=== PATIENT | female | born 1940 | race Caucasian/White ===

== ENCOUNTER 2016-12-27 16:28 | Observation (INO) | payer MEDICARE ==
[2016-12-27] MEDS ORDERED: ALBUTEROL NEBULIZED 2.5 MG/3 ML INHALATION PRN (19:20)
[2016-12-27] MEDS ORDERED: HEPARIN SODIUM,PORCINE 5,000 UNIT/ML 1 ML VIAL IV STA (19:27)
[2016-12-27] MEDS ORDERED: HEPARIN SODIUM,PORCINE/D5W PMX 25,000 UNIT in DEXTROSE/WATER 1 500ML.BAG IV SCH (19:30)
[2016-12-27] MEDS ORDERED: PRAVASTATIN SODIUM 80 MG TAB PO SCH (21:00)
[2016-12-28] MEDS: NITROGLYCERIN OINT 1 INCH/GM PACKET TOPICAL SCH ×2 (00:52→06:35)
[2016-12-28 07:21] LABS: Basophils % (A) 1 %; CH 31.4; CHCM 33.7; Eosinophils # (A) 0.1 k/uL (0-0.7); Eosinophils % (A) 1 %; HCT 42.1 % (34.0-46.0); HGB 14.1 gm/dL (11.4-16.0); Luc # (Auto) 0.15; Luc % (Auto) 2; Lymphocytes # (A) 3.3 k/uL (1.0-4.8); Lymphocytes % (A) 51 %; MCH 31.4 pg (25.0-35.0); MCHC 33.6 g/dL (31.0-37.0); MCV 93.7 fL (80.0-100.0); Mean Platelet Volume 7.6; Monocytes # (A) 0.4 k/uL (0-1.0); Monocytes % (A) 7 %; Neutrophils # (A) 2.4 k/uL (1.3-7.7); Neutrophils % (A) 38 %; RDW 13.4 % (11.5-15.5); WBC 6.4 k/uL (3.8-10.6); WBC (Perox) 6.35
[2016-12-28] MEDS ORDERED: PANTOPRAZOLE 40 MG TABLET PO SCH (07:30)
[2016-12-28 08:11] LABS: ALT 25 U/L (9-52); AST 20 U/L (14-36); Alkaline Phosphatase 100 U/L (38-126); Anion Gap 8 mmol/L; Blood Urea Nitrogen 16 mg/dL (7-17); Calcium 8.9 mg/dL (8.4-10.2); Carbon Dioxide 24 mmol/L (22-30); Chloride 109 mmol/L (98-107); Glucose 121 mg/dL (74-99); Non-African American GFR(MDRD) >60 (>60 ml/min/1.73 sqM); Potassium 4.2 mmol/L (3.5-5.1); Sodium 141 mmol/L (137-145); Total Bilirubin 0.5 mg/dL (0.2-1.3); Total Protein 5.9 g/dL (6.3-8.2)
[2016-12-28 08:47] LABS: Manual Review Performed; RBC Morphology Normal
[2016-12-28] MEDS ORDERED: NEBIVOLOL 5 MG TAB PO SCH (09:00)
[2016-12-28] MEDS ORDERED: ASPIRIN 325 MG TAB PO SCH (09:00)
[2016-12-28] MEDS ORDERED: DULoxetine HCL 60 MG CAPSULE.DR PO SCH (09:00)
[2016-12-28] MEDS ORDERED: METOPROLOL TARTRATE 12.5 MG TAB PO SCH (09:30)
[2016-12-28] MEDS ORDERED: MECLIZINE 12.5 MG TAB PO PRN (09:37)
--- NOTE | 2016-12-28 10:59 | ECHOF ---
Referral Reason:chest pain, shortness of breath MEASUREMENTS -------- HEIGHT: 157.5 cm WEIGHT: 100.7 kg BP: 122/56 IVSd: 1.2 cm (0.6 - 1.1) LVIDd: 3.5 cm (3.9 - 5.3) LVPWd: 1.2 cm (0.6 - 1.1) IVSs: 1.6 cm LVIDs: 2.3 cm LVPWs: 1.9 cm LA Diam: 3.9 cm (2.7 - 3.8) LAESV Index (A-L): 21.86 ml/m Ao Diam: 3.0 cm (2.0 - 3.7) AV Cusp: 2.0 cm (1.5 - 2.6) LA Diam: 3.7 cm (2.7 - 3.8) MV EXCURSION: 13.536 mm (> 18.000) MV EF SLOPE: 45 mm/s (70 - 150) EPSS: 0.7 cm MV E Brown: 0.92 m/s MV DecT: 311 ms MV A Brown: 0.85 m/s MV E/A Ratio: 1.09 RAP: 5.00 mmHg RVSP: 24.03 mmHg FINDINGS -------- Sinus rhythm. This was a technically adequate study. The left ventricular size is normal. There is mild concentric left ventricular hypertrophy. Overall left ventricular systolic function is normal with, an EF between 55 - 60 %. The right ventricle is normal in size and function. Normal LA size by volume 22+/-6 ml/m2. The right atrium is normal in size. Aortic valve is trileaflet and is mildly thickened. Mild mitral annular calcification present. Mild mitral regurgitation is present. Mild tricuspid regurgitation present. There is no evidence of pulmonary hypertension. The right ventricular systolic pressure, as measured by Doppler, is 24.03mmHg. There is no pulmonic regurgitation present. The aortic root, ascending aorta and aortic arch are normal. There is no pericardial effusion. CONCLUSIONS -------- 1. Sinus rhythm. 2. There is no pulmonic regurgitation present. 3. The aortic root, ascending aorta and aortic arch are normal. 4. There is no pericardial effusion. 5. This was a technically adequate study. 6. There is mild concentric left ventricular hypertrophy. 7. Overall left ventricular systolic function is normal with, an EF between 55 - 60 %. 8. Normal LA size by volume 22+/-6 ml/m2. 9. Aortic valve is trileaflet and is mildly thickened. 10. Mild mitral annular calcification present. 11. Mild mitral regurgitation is present. 12. Mild tricuspid regurgitation present. REGULATORY SERVICES CONSULTANT: Lupe Murphy RDCS
--- NOTE | 2016-12-28 11:45 | CONS ---
This is a 76-year-old lady with a known history of hypertensive cardiovascular disease, hyperlipidemia, calcified coronary arteries who underwent stenting of circumflex performed on October of 2014 with a drug eluting stent. She saw Dr. Gutierrez in the last few months and in August of this year had a Lexiscan stress test which revealed a very small apical lateral wall defect with partial normalization, which was not strongly suggestive of ischemia. She has been advised medical therapy, has been doing well. She comes in with complaints of what seems to be a nondescript chest tightness and pressure, with which she presented to [facility] and then was a direct admit from there. She had elevated D-dimer and she had a CT angio done, which was negative for pulmonary embolism. She is resting comfortably without symptoms at this time. Her main complaint is right ear pain and dizziness, which seems to be more or less related to an inner ear type issue. Her troponins are normal. She has no chest pain at this time. She appears to be hemodynamically stable. EKG does not reveal any significant abnormalities. PAST MEDICAL HISTORY: 1. Hypertension. 2. Hyperlipidemia. 3. History of stenting of mid circumflex performed in October of 2014. Medications at home include aspirin, Bystolic 5 mg daily and Cymbalta. She also takes pravastatin 80 mg daily and albuterol inhaler. ALLERGIES: TETRACYCLINE, SULFA, CLINDAMYCIN. On examination, blood pressure is 130/80, pulse rate is 80 per minute and regular. HEENT: Unremarkable. Fundus was not examined by me. Neck is supple. No JVD. I do not hear a carotid bruit. There is no thyromegaly. Heart exam reveals S1 and S2 are normal without rub, murmur or gallop. Lungs are clear. Abdomen is soft, nontender. Lower extremities reveal normal pulses, no edema. Central nervous system is normal. EKG is unremarkable. Laboratory data revealed troponins are normal. D-dimer was high, but CT angiography was negative for pulmonary embolism or aortic pathology. IMPRESSION: 1. Atypical chest pain. 2. History of PCI of circumflex in October of 2014 and a stress test that did not reveal any strong evidence of ischemia in August of this year. 3. Hypertension. 4. Hypercholesterolemia. RECOMMENDATIONS: I am recommending that we discontinue IV, put a Hep Lock, increase the activity. Seek an ENT consult for her dizziness, start her on meclizine 12.5 mg t.i.d. She can be discharged later on today and see Dr. Gutierrez as an outpatient. I am not recommending any intervention coronary disease lambert and her symptoms are quite atypical and her CT angiography was performed within the last 12 to 14 hours, which was negative. She received about 120 mL of contrast. Thank you very much for the consult. ANTWON
[2016-12-28 12:27] VITALS: BP 142/67; PULSE 81; RESP 14; TEMP 98.2
--- NOTE | 2016-12-28 12:55 | P.HPIM ---
History of Present Illness H&P Date: 12/28/16 Chief Complaint: Chest pain HISTORY AND PHYSICAL AND DISCHARGE SUMMARY: This is a 76-year-old female patient of Dr. Erwin with past medical history of degenerative joint disease, skin cancer, gastroesophageal reflux disease, hypertension, depression and generalized anxiety disorder, hyperlipidemia, glaucoma, SVT, hypothyroidism, colon polyp and history of coronary artery disease status post PCI in the LAD 2 years ago. The patient recently underwent a stress test in the cardiology office which was negative. Patient presented to [facility] with complaints of chest tightness and dizziness and was slightly transferred to [facility] as a direct admission to the observation unit. She had an elevated d-dimer and CTA of the chest was negative for pulmonary embolism she is complaining of right ear pain and dizziness. Echocardiogram reveals EF of 55-60%, mild mitral regurgitation, mild tricuspid regurgitation. Patient has been seen by mold maker, Dr. Clive George, with recommendations for consult with Dr. Gonzales which will be done as an outpatient. Patient does have continued dizziness for which she received meclizine this morning. Patient denies any chest pain or shortness of breath. Patient will be discharged home today in stable condition. Review of Systems All systems: negative Constitutional: Denies chills, Denies fever Eyes: denies blurred vision, denies pain Ears, nose, mouth and throat: Reports vertigo, Denies headache, Denies sore throat Cardiovascular: Reports chest pain, Denies shortness of breath Respiratory: Denies cough Gastrointestinal: Denies abdominal pain, Denies diarrhea, Denies nausea, Denies vomiting Genitourinary: Denies dysuria, Denies hematuria Musculoskeletal: Denies myalgias Integumentary: Denies pruritus, Denies rash Neurological: Denies numbness, Denies weakness Psychiatric: Denies anxiety, Denies depression Endocrine: Denies fatigue, Denies weight change Past Medical History Past Medical History: Coronary Artery Disease (CAD), Cancer, Chest Pain / Angina , GERD/Reflux, Hyperlipidemia, Hypertension, Osteoarthritis (OA), Thyroid Disorder Additional Past Medical History / Comment(s): SKIN CANCER, "AFTER 2ND KNEE SX KIDNEYS SHUT DOWN-SINCE RESOLVED", DJD, SVT, PALPITATIONS, glaucoma History of Any Multi-Drug Resistant Organisms: None Reported Past Surgical History: Appendectomy, Bariatric Surgery, Cardiac Ablation, Cholecystectomy, Heart Catheterization With Stent, Hysterectomy, Joint Replacement Additional Past Surgical History / Comment(s): Right total knee arthroplasty in 2009 with revision in 2013, right heel cord repair, right knee meniscus repair, right knee adhesion repair, RIGHT EYE CATARACT, RIGHT AND LEFT ROTATOR CUFF REPAIR, NIKKO CARPAL TUNNEL, RIGHT KNEE ARTHROSCOPIC, COLONOSCOPY X3 POLYS REMOVED WERE BENIGN, lap band, spinal fusion, cardiac ablation, right ankle fracture repair Past Anesthesia/Blood Transfusion Reactions: Previous Problems w/ Anesthesia Additional Past Anesthesia/Blood Transfusion Reaction / Comment(s): "AFTER 2ND KNEE SX-KIDNEYS SHUT DOWN" Date of Last Stent Placement:: 2014 Smoking Status: Former smoker Additional Past Alcohol Use History / Comment(s): Patient was a smoker of 2 packs per day for 25 years ago quit 30 years ago. No marijuana, street drug use or alcohol use. Patient is and lives at home with her . Her is wheelchair bound. - Past Family History Mother Family Medical History: Cancer Additional Family Medical History / Comment(s): Mother at age 45 from COLON CANCER Father Family Medical History: Congestive Heart Failure (CHF), Myocardial Infarction ( [place]) Additional Family Medical History / Comment(s): Father at age 45 from myocardial infarction. Brother(s) Additional Family Medical History / Comment(s): Patient had 1 brother that at age 64 from a myocardial infarction. Sister(s) Additional Family Medical History / Comment(s): Patient has 3 sisters and one has history of Guillain-barre syndrome. Son(s) Additional Family Medical History / Comment(s): Patient has one son with history of neurofibrmatosis type I and type II. Medications and Allergies Home Medications Medication Instructions Recorded Confirmed Type Aspirin 81 mg PO DAILY 10/23/14 12/27/16 History DULoxetine HCL [Cymbalta] 120 mg PO DAILY 10/23/14 12/27/16 History Albuterol Inhaler [Ventolin Hfa 2 puff INHALATION RT-Q4H PRN 12/27/16 12/27/16 History Inhaler] Pravastatin Sodium [Pravachol] 80 mg PO HS 12/27/16 12/27/16 History Allergies Allergy/AdvReac Type Severity Reaction Status Date / Time clindamycin Allergy Swelling, Verified 12/27/16 21:37 ITCHING,NAUSEA AND VOMITING Sulfa (Sulfonamide Allergy Swelling Verified 12/27/16 21:37 Antibiotics) Tetracyclines Allergy Swelling Verified 12/27/16 21:37 Physical Exam Vitals: Vital Signs Temp Pulse Resp BP Pulse Ox 12/28/16 08:00 97.6 F 66 18 139/65 92 L 12/28/16 04:00 97.8 F 70 18 122/56 94 L 12/28/16 00:00 98.1 F 68 18 127/66 90 L 12/27/16 20:00 97.9 F 78 18 134/77 90 L 12/27/16 18:26 98.1 F 69 19 156/79 92 L Intake and Output 12/27/16 12/28/16 12/28/16 22:59 06:59 14:59 Intake Total 520 496.603 Balance 520 496.603 Intake: IV 60 320 0.9 NS @ KVO 60 160 Heparin Sodium,Porcine/ 160 D5w Pmx 25,000 unit In Dextrose/Water 1 500ml. bag @ 9.89 UNITS/KG/HR 19 .99 mls/hr IV .Q24H RONALD Rx#:[id number] Intake, IV Titration 60 126.603 Amount Heparin Sodium,Porcine/ 60 126.603 D5w Pmx 25,000 unit In Dextrose/Water 1 500ml. bag @ 9.89 UNITS/KG/HR 19 .99 mls/hr IV .Q24H RONALD Rx#:[id number] Oral 400 50 Other: Voiding Method Toilet Toilet Toilet # Voids 2 2 Weight 101.1 kg Gen: This is a morbidly obese 76-year-old female sitting up in bed and appears to be in no acute distress. HEENT: Head is atraumatic, normocephalic. Pupils equal, round. Sclerae is anicteric. NECK: Supple. No JVD. No lymphadenopathy. No thyromegaly. LUNGS: Clear to auscultation. No wheezes or rhonchi. No intercostal retractions. HEART: Regular rate and rhythm. No murmur. ABDOMEN: Soft. Bowel sounds are present. No masses. No tenderness. EXTREMITIES: No pedal edema. No calf tenderness. NEUROLOGICAL: Patient is awake, alert and oriented x3. Cranial nerves 2 through 12 are grossly intact. Results CBC & Chem 7: 12/28/16 07:06 12/28/16 07:06 Labs: Abnormal Lab Results - Last 24 Hours (Table) 12/28/16 12/28/16 Range/Units 01:46 07:06 APTT 45.7 H (22.0-30.0) sec Chloride 109 H (98-107) mmol/L Glucose 121 H (74-99) mg/dL Total Protein 5.9 L (6.3-8.2) g/dL Albumin 3.4 L (3.5-5.0) g/dL Thrombosis Risk Factor Assmnt - DVT/VTE Prophylaxis DVT/VTE Prophylaxis: Mechanical Prophylaxis ordered - Choose All That Apply Any of the Below Risk Factors Present?: Yes Each Factor Represents 1 point: Obesity (BMI >25) Other Risk Factors: Yes Each Risk Factor Represents 2 Points: Age 61-74 years, Malignancy Other congenital or acquired thrombophilia - If yes, enter type in comment: No Thrombosis Risk Factor Assessment Total Risk Factor Score: 5 Thrombosis Risk Factor Assessment Level: High Risk Assessment and Plan Plan: 1. Chest pain of unclear etiology with recently normal stress test and history of coronary artery disease with previous PCI of the LAD 2 years ago. Patient has been evaluated by cardiology and cleared for discharge. Diastolic was discontinued and patient started on metoprolol tartrate 25 mg twice daily. 2. Dizziness. Patient will follow-up with Dr Gonzales as an outpatient. Continue meclizine at home. 3. Hypertension. Continue metoprolol. 4. Hyperlipidemia. Continue pravastatin. 5. Glaucoma. 6. History of Hypothyroidism. 7. Gastroesophageal reflux disease. 8. Depression recurrent with generalized anxiety disorder. Continue Cymbalta. Patient was placed on the observation unit. Patient to be discharged home today in stable condition. Impression and plan of care have been directed as dictated by the signing physician. Leana Navarrete nurse practitioner acting as scribe for signing physician.
== END 2016-12-28 12:20 | disposition home or self-care (01) ==
LOC: 3OBS 18:00
PROVIDERS: ADMIT Internal Medicine; ATTEND Internal Medicine
DX: R07.89 Other chest pain (principal); I25.10 Atherosclerotic heart disease of native coronary artery without angina pectoris; R42 Dizziness and giddiness; E78.5 Hyperlipidemia, unspecified; H40.9 Unspecified glaucoma; E03.9 Hypothyroidism, unspecified; K21.9 Gastro-esophageal reflux disease without esophagitis; F41.1 Generalized anxiety disorder; F32.9 Major depressive disorder, single episode, unspecified; I11.9 Hypertensive heart disease without heart failure; Z95.5 Presence of coronary angioplasty implant and graft; R79.89 Other specified abnormal findings of blood chemistry; H92.01 Otalgia, right ear; Z79.82 Long term (current) use of aspirin; Z79.899 Other long term (current) drug therapy; Z88.1 Allergy status to other antibiotic agents; Z88.2 Allergy status to sulfonamides; E78.00 Pure hypercholesterolemia, unspecified; Z87.891 Personal history of nicotine dependence; E66.01 Morbid (severe) obesity due to excess calories; Z68.41 Body mass index [BMI] 40.0-44.9, adult; Z85.828 Personal history of other malignant neoplasm of skin; Z82.49 Family history of ischemic heart disease and other diseases of the circulatory system
CPT/HCPCS: 93005; 96365; 96366 ×2; 96376; 93306; 80053; 84443; 84484 ×2; 85025; 85730; G0378 ×2; G0379; J1644 ×2

== ENCOUNTER → 2019-07-07 | Outpatient (CLI) | payer MEDICARE ==
[2019-07-07 16:04] LABS: Basophils % (A) 0 %; Eosinophils # (A) 0.1 k/uL (0-0.7); Eosinophils % (A) 1 %; HCT 44.5 % (34.0-46.0); HGB 14.1 gm/dL (11.4-16.0); Lymphocytes % (A) 33 %; MCH 29.4 pg (25.0-35.0); MCHC 31.6 g/dL (31.0-37.0); MCV 92.9 fL (80.0-100.0); Mean Platelet Volume 7.4; Monocytes # (A) 0.4 k/uL (0-1.0); Monocytes % (A) 5 %; Neutrophils # (A) 5.5 k/uL (1.3-7.7); Neutrophils % (A) 60 %; Platelet Count 235 k/uL (150-450); RBC 4.79 m/uL (3.80-5.40); RDW 12.2 % (11.5-15.5); WBC 9.1 k/uL (3.8-10.6)
[2019-07-07 16:10] LABS: Calcium 9.6 mg/dL (8.4-10.2); Potassium 4.8 mmol/L (3.5-5.1); Total Bilirubin 0.8 mg/dL (0.2-1.3); Total Protein 6.8 g/dL (6.3-8.2)
== END | disposition home or self-care (01) ==
LOC: LABPAT 14:36
PROVIDERS: ATTEND Surgery
DX: Z01.818 Encounter for other preprocedural examination (principal); Z01.812 Encounter for preprocedural laboratory examination
CPT/HCPCS: 36415; 80053; 85025; 93005

== ENCOUNTER → 2019-07-07 | Outpatient (CLI) | payer MEDICARE ==
[2019-07-07 14:19] VITALS: BP 148/82; PULSE 71; RESP 16; TEMP 98.2; BMI 43.1
--- NOTE | 2019-07-07 16:11 | P.HPBAR ---
Bariatric H&P - History & Physicial H&P Date: 07/07/19 History & Physicial: Visit/CC: pt wants band out Patient initial contact: Initial weight: 112.037 kg Initial weight in pounds: 247.00 Height: 5 ft Initial BMI: 48.2 Last weight: Current weight: 100.244 kg Current weight in pounds: 221.00 Current BMI: 43.1 [place] body weight (based on NIH guidelines): 45.359 kg Excess body weight loss: 17.6% The patient is a 79 year-old F who presents for Bariatric Assessment. Patient's had issues with chronic GERD and dysphagia. She is requesting a band to be removed. Past Medical History Past Medical History: Coronary Artery Disease (CAD), Cancer, Chest Pain / Angina, GERD/Reflux, Hyperlipidemia, Hypertension, Osteoarthritis (OA), Thyroid Disorder Additional Past Medical History / Comment(s): SKIN CANCER, "AFTER 2ND KNEE SX KIDNEYS SHUT DOWN-SINCE RESOLVED", DJD, SVT, PALPITATIONS, glaucoma History of Any Multi-Drug Resistant Organisms: None Reported Past Surgical History: Adenoidectomy, Appendectomy, Bariatric Surgery, Cardiac Ablation, Cholecystectomy, Heart Catheterization With Stent, Hysterectomy, Joint Replacement, Orthopedic Surgery, Tonsillectomy Additional Past Surgical History / Comment(s): Right total knee arthroplasty in 2008 with revision in 2012, right heel cord repair, right knee meniscus repair, right knee adhesion repair, RIGHT EYE CATARACT, RIGHT AND LEFT ROTATOR CUFF REPAIR, NIKKO CARPAL TUNNEL, RIGHT KNEE ARTHROSCOPIC, COLONOSCOPY X3 POLYS REMOVED WERE BENIGN, lap band, spinal fusion, cardiac ablation, right ankle fracture repair Past Anesthesia/Blood Transfusion Reactions: Previous Problems w/ Anesthesia Additional Past Anesthesia/Blood Transfusion Reaction / Comm: "AFTER 2ND KNEE SX-KIDNEYS SHUT DOWN" Date of Last Stent Placement:: 2014 Past Psychological History: Depression Additional Psychological History / Comment(s): PT IS INDEPENDANT. LIVES WITH HER ,SON AND 3 GRAND CHILDREN. HAS 1 PET CAT. PT HAS 6 PORCH STEPS OR A RAMP SHE CAN USE. NO OUTSIDE SERVICES RECEIVED. NO MEDICAL EQUIPMENT. Smoking Status: Former smoker Past Alcohol Use History: Rare Additional Past Alcohol Use History / Comment(s): Patient was a smoker of 2 packs per day for 25 years ago quit 30 years ago. No marijuana, street drug use or alcohol use. Patient is and lives at home with her . Her is wheelchair bound. Past Drug Use History: None Reported - Past Family History Brother(s) Additional Family Medical History / Comment(s): Patient had 1 brother that at age 64 from a myocardial infarction. Sister(s) Additional Family Medical History / Comment(s): Patient has 3 sisters and one has history of Guillain-barre syndrome. Son(s) Additional Family Medical History / Comment(s): Patient has one son with history of neurofibrmatosis type I and type II. Mother Family Medical History: Cancer Additional Family Medical History / Comment(s): Mother at age 45 from COLON CANCER Father Family Medical History: Congestive Heart Failure (CHF), Myocardial Infarction ([place]) Additional Family Medical History / Comment(s): Father at age 45 from myocardial infarction. Surgical - Exam Vital Signs Temp Pulse Resp BP 98.2 F 71 16 148/82 07/07/19 14:16 07/07/19 14:16 07/07/19 14:16 07/07/19 14:16 - General well developed, well nourished, no distress - Eyes PERRL - ENT normal pinna - Neck no masses - Respiratory normal expansion - Cardiovascular Rhythm: regular - Abdomen Abdomen: soft, non tender Bariatric Assessment & Plan Plan: The patient's had chronic dysphagia and GERD. Patient will have her LAP-BAND system removed. Patient was warned of potential weight gain. Bariatric Checklist Checklist: Plan: Checklist: EGD: 1. Hiatal hernia: 2. H. Pylori: HgbA1c: Vitamin D: Smoking: Former smoker Primary care physician referral: Yaima Psychiatry clearance: Cardiology clearance: Sleep study: Diet journal: VTE risk score: VTE risk level: Rehab needs at discharge:
== END | disposition home or self-care (01) ==
LOC: BARWHC3 13:52
PROVIDERS: ATTEND Surgery
DX: Z46.51 Encounter for fitting and adjustment of gastric lap band (principal); K21.9 Gastro-esophageal reflux disease without esophagitis; R13.10 Dysphagia, unspecified; Z87.891 Personal history of nicotine dependence; Z98.84 Bariatric surgery status; Z90.49 Acquired absence of other specified parts of digestive tract; Z90.710 Acquired absence of both cervix and uterus; Z98.890 Other specified postprocedural states
CPT/HCPCS: 99211

== ENCOUNTER 2019-07-30 06:50 | Day surgery (SDC) | payer MEDICARE ==
[2019-07-29 12:39] VITALS: BMI 39.6
[~2019-07-30 06:50] MED LIST: DEXAMETHASONE SOD PHOSPHATE 10 MG/ML 1 ML VIAL IV ONE; LACTATED RINGERS 1,000 ML IV SCH; LIDOCAINE 1% (10MG/ML) FOR IV START INTRADERMA PRN; MIDAZOLAM 2 MG/2 ML VIAL IV PRN; SCOPOLAMINE 1.5MG/72HR PATCH TRANSDERM ONE
[2019-07-30] MEDS: ONDANSETRON 4 MG/2 ML VIAL IVP ONE ×2 (07:28→09:41)
[2019-07-30] MEDS ORDERED: NEOSTIGMINE 1 MG/ML 10 ML VIAL ONE (08:10)
[2019-07-30] MEDS ORDERED: MIDAZOLAM 2 MG/2 ML VIAL ONE (08:10)
[2019-07-30] MEDS ORDERED: PROPOFOL 10 MG/ML 20 ML VIAL IV ONE (08:10)
[2019-07-30] MEDS ORDERED: SUCCINYLCHOLINE CHLORIDE 100 MG/5 ML SYR IV ONE (08:10)
[2019-07-30] MEDS ORDERED: fentaNYL (PF) 50 MCG/ML 2 ML AMP ONE (08:10)
[2019-07-30] MEDS ORDERED: ROCURONIUM BROMIDE 10 MG/ML 5 ML VIAL IV ONE (08:10)
[2019-07-30] MEDS ORDERED: LIDOCAINE 1% INJ 10MG/ML (20 ML MDV) ONE (08:10)
[2019-07-30] MEDS ORDERED: GLYCOPYRROLATE 0.2 MG/ML 2 ML VIAL ONE (08:10)
[2019-07-30] MEDS ORDERED: HEPARIN SODIUM,PORCINE 5,000 UNIT/ML 1 ML VIAL SQ ONE (08:12)
--- NOTE | 2019-07-30 08:30 | P.GSHP ---
History of Present Illness H&P Date: 07/30/19 Chief Complaint: Dysphagia This a 79-year-old female who's had chronic history dysphagia. Patient rents today for removal of LAP-BAND system Past Medical History Past Medical History: Coronary Artery Disease (CAD), Cancer, Chest Pain / Angina, GERD/Reflux, Hyperlipidemia, Hypertension, Osteoarthritis (OA), Thyroid Disorder Additional Past Medical History / Comment(s): SKIN CANCER, "AFTER 2ND KNEE SX KIDNEYS SHUT DOWN-SINCE RESOLVED", DJD, SVT, PALPITATIONS, glaucoma, recent "viral" infection per pt-just finished antibiotics, feels much better History of Any Multi-Drug Resistant Organisms: None Reported Past Surgical History: Appendectomy, Bariatric Surgery, Cardiac Ablation, Cholecystectomy, Heart Catheterization With Stent, Hysterectomy, Joint Repl acement Additional Past Surgical History / Comment(s): Right total knee arthroplasty in 2008 with revision in 2012, right heel cord repair, right knee meniscus repair, right knee adhesion repair, RIGHT EYE CATARACT, NIKKO ROTATOR CUFF REPAIR, NIKKO CARPAL TUNNEL, RIGHT KNEE ARTHROSCOPIC, COLONOSCOPY X3, lap band, spinal fusion, right ankle fracture repair Past Anesthesia/Blood Transfusion Reactions: Previous Problems w/ Anesthesia Additional Past Anesthesia/Blood Transfusion Reaction / Comment(s): "AFTER 2ND KNEE SX-KIDNEYS SHUT DOWN" Date of Last Stent Placement:: 2014 Smoking Status: Former smoker - Past Family History Brother(s) Additional Family Medical History / Comment(s): Patient had 1 brother that at age 64 from a myocardial infarction. Sister(s) Additional Family Medical History / Comment(s): Patient has 3 sisters and one has history of Guillain-barre syndrome. Son(s) Additional Family Medical History / Comment(s): Patient has one son with history of neurofibrmatosis type I and type II. Mother Family Medical History: Cancer Additional Family Medical History / Comment(s): Mother at age 45 from COLON CANCER Father Family Medical History: Congestive Heart Failure (CHF), Myocardial Infarction ([place]) Additional Family Medical History / Comment(s): Father at age 45 from myocardial infarction. Medications and Allergies Home Medications Medication Instructions Recorded Confirmed Type Atorvastatin [Lipitor] 40 mg PO HS 07/07/19 07/29/19 History Evolocumab [Repatha Syringe] 140 mg SQ Q14D 07/07/19 07/29/19 History HYDROcodone/APAP 10-325MG [[place] 1 tab PO Q6H PRN 07/07/19 07/29/19 History 10-325] Nebivolol HCl [Bystolic] 5 mg PO DAILY 07/07/19 07/29/19 History Omeprazole 40 mg PO DAILY 07/07/19 07/29/19 History Allergies Allergy/AdvReac Type Severity Reaction Status Date / Time clindamycin Allergy Swelling, Verified 07/30/19 07:06 ITCHING,NAUSEA AND VOMITING ezetimibe [From Zetia] Allergy Rash/Hives Verified 07/30/19 07:06 rosuvastatin [From Crestor] Allergy Rash/Hives Verified 07/30/19 07:06 Sulfa (Sulfonamide Allergy Swelling Verified 07/30/19 07:06 Antibiotics) Tetracyclines Allergy Swelling Verified 07/30/19 07:06 Surgical - Exam Vital Signs Temp Pulse Resp BP Pulse Ox 98.6 F 71 16 169/79 95 07/30/19 07:17 07/30/19 07:17 07/30/19 07:17 07/30/19 07:17 07/30/19 07:17 - General well developed, well nourished, no distress - Eyes PERRL - ENT normal pinna - Neck no masses - Respiratory normal expansion - Cardiovascular Rhythm: regular - Abdomen Abdomen: soft, non tender Assessment and Plan Assessment: Chronic dysphagia. We'll perform removal of LAP-BAND system.
[2019-07-30] MEDS ORDERED: BUPIVACAINE (PF) 0.25% 30 ML VIAL SQ ONE (08:44)
[2019-07-30 09:17] VITALS: TEMP 97.4
[2019-07-30] MEDS: HYDROmorphone 0.5 MG/0.5 ML SYRINGE IVP PRN ×3 (09:27→09:51)
--- NOTE | 2019-07-30 09:36 | P.OP ---
Date of Procedure: 07/30/19 Preoperative Diagnosis: Dysphagia Postoperative Diagnosis: Dysphagia Procedure(s) Performed: Laparoscopic removal of LAP-BAND system Anesthesia: HILLARY Surgeon: Celso Do Estimated Blood Loss (ml): 5 Pathology: none sent Condition: stable Disposition: PACU Description of Procedure: The patient's placed on the operative table in supine position. She received general anesthesia. Her abdomen was prepped and draped usual sterile fashion. The patient's placed in dorsolithotomy. Using 1% local Xylocaine the skin incision sites were anesthetized. Using 11 blade the skin was incised and using which cautery the LAP-BAND port was dissected free from some taste tissues. The port was then cut and withdrawn from patient. Next using a 5 mm operative trocar the pleural cavity is entered. Upon entering peritoneal cavity the abdomen was insufflated after adequate insufflation the laparoscope placed back the pleural cavity. Next a 5 mm trochars placed in the right epigastric left lateral, right lateral a 8 mm trochars placed in the left. Local area and a 15 mm trocar is placed at the LAP-BAND port site using which cautery the adhesions Shantel device were lysed. Then the buckle was exposed. The buckle was then cut and the withdrawn from around stomach. There was no injury to the stomach seen. The LAP-BAND device then brought up through the 15 mm trocar site. The trochars withdrawn. The skin was closed interrupted 3-0 Monocryl suture. Dermabond was applied. Patient top she will was sent to recovery in stable condition.
[2019-07-30] MEDS ORDERED: KETOROLAC 30 MG/ML 1 ML VIAL IVP ONE (09:41)
[2019-07-30 10:22] VITALS: BP 108/68; PULSE 67; RESP 16
== END 2019-07-30 10:46 | disposition home or self-care (01) ==
LOC: OR 06:50
PROVIDERS: ATTEND Surgery
DX: K95.09 Other complications of gastric band procedure (principal); R13.10 Dysphagia, unspecified; K21.9 Gastro-esophageal reflux disease without esophagitis; I25.119 Atherosclerotic heart disease of native coronary artery with unspecified angina pectoris; I10 Essential (primary) hypertension; Z87.891 Personal history of nicotine dependence; E78.5 Hyperlipidemia, unspecified; M19.90 Unspecified osteoarthritis, unspecified site; E07.9 Disorder of thyroid, unspecified; Z85.828 Personal history of other malignant neoplasm of skin; H40.9 Unspecified glaucoma; Z90.49 Acquired absence of other specified parts of digestive tract; Z90.710 Acquired absence of both cervix and uterus; Z98.1 Arthrodesis status; Z95.5 Presence of coronary angioplasty implant and graft; Z98.41 Cataract extraction status, right eye; Z82.0 Family history of epilepsy and other diseases of the nervous system; Z82.49 Family history of ischemic heart disease and other diseases of the circulatory system; Z80.0 Family history of malignant neoplasm of digestive organs; Z79.891 Long term (current) use of opiate analgesic; Z79.899 Other long term (current) drug therapy; Z88.1 Allergy status to other antibiotic agents; Z88.2 Allergy status to sulfonamides; Z88.8 Allergy status to other drugs, medicaments and biological substances
CPT/HCPCS: 43774; J2250; J1644; J1100; J2710; J0690; J2405; J2001; J3010; J1885; J0330; J2704; J1170

== ENCOUNTER → 2019-08-18 | Outpatient (CLI) | payer MEDICARE ==
[2019-08-18 16:24] VITALS: BP 138/80; PULSE 77; TEMP 98.2; BMI 43.7
--- NOTE | 2019-08-19 12:43 | P.HPBAR ---
Bariatric H&P - History & Physicial H&P Date: 08/18/19 History & Physicial: Visit/CC: lap band removal follow up Patient initial contact: Initial weight: 112.037 kg Initial weight in pounds: 247.00 Height: 5 ft Initial BMI: 48.2 Last weight: Current weight: 101.605 kg Current weight in pounds: 224.00 Current BMI: 43.7 [place] body weight (based on NIH guidelines): 45.359 kg Excess body weight loss: 15.6% The patient is a 79 year-old F who presents for Bariatric Assessment. Patient presents today for follow-up. She is morbidly obese. Her BMI is 44. She had her LAP-BAND removed several weeks ago. She's had some minimal GERD. Past Medical History Past Medical History: Coronary Artery Disease (CAD), Cancer, Chest Pain / Angina, GERD/Reflux, Hyperlipidemia, Hypertension, Osteoarthritis (OA), Thyroid Disorder Additional Past Medical History / Comment(s): SKIN CANCER, "AFTER 2ND KNEE SX KIDNEYS SHUT DOWN-SINCE RESOLVED", DJD, SVT, PALPITATIONS, glaucoma, recent "viral" infection per pt-just finished antibiotics, feels much better History of Any Multi-Drug Resistant Organisms: None Reported Past Surgical History: Appendectomy, Bariatric Surgery, Cardiac Ablation, Cholecystectomy, Heart Catheterization With Stent, Hysterectomy, Joint Replacement Additional Past Surgical History / Comment(s): Right total knee arthroplasty in 2008 with revision in 2012, right heel cord repair, right knee meniscus repair, right knee adhesion repair, RIGHT EYE CATARACT, NIKKO ROTATOR CUFF REPAIR, NIKKO CARPAL TUNNEL, RIGHT KNEE ARTHROSCOPIC, COLONOSCOPY X3, lap band, spinal fusion, right ankle fracture repair lap band [id number] Past Anesthesia/Blood Transfusion Reactions: Previous Problems w/ Anesthesia Additional Past Anesthesia/Blood Transfusion Reaction / Comm: "AFTER 2ND KNEE SX-KIDNEYS SHUT DOWN" Date of Last Stent Placement:: 2014 Past Psychological History: Depression Additional Psychological History / Comment(s): PT IS INDEPENDANT. LIVES WITH HER ,SON AND 3 GRAND CHILDREN. HAS 1 PET CAT. PT HAS 6 PORCH STEPS OR A RAMP SHE CAN USE. NO OUTSIDE SERVICES RECEIVED. NO MEDICAL EQUIPMENT. Smoking Status: Former smoker Past Alcohol Use History: Rare Additional Past Alcohol Use History / Comment(s): Patient was a smoker of 2 packs per day for 25 years ago quit 30 years ago. No marijuana, street drug use or alcohol use. Patient is and lives at home with her . Her is wheelchair bound. Past Drug Use History: None Reported - Past Family History Brother(s) Additional Family Medical History / Comment(s): Patient had 1 brother that at age 64 from a myocardial infarction. Sister(s) Additional Family Medical History / Comment(s): Patient has 3 sisters and one has history of Guillain-barre syndrome. Son(s) Additional Family Medical History / Comment(s): Patient has one son with history of neurofibrmatosis type I and type II. Mother Family Medical History: Cancer Additional Family Medical History / Comment(s): Mother at age 45 from COLON CANCER Father Family Medical History: Congestive Heart Failure (CHF), Myocardial Infarction ([place]) Additional Family Medical History / Comment(s): Father at age 45 from myocardial infarction. Surgical - Exam Vital Signs Temp Pulse BP 98.2 F 77 138/80 08/18/19 16:22 08/18/19 16:22 08/18/19 16:22 - General well developed, well nourished, no distress - Eyes PERRL - ENT normal pinna - Neck no masses - Respiratory normal expansion - Cardiovascular Rhythm: regular - Abdomen Abdomen: soft, non tender Bariatric Assessment & Plan Plan: RBC, BMI 44 Patient is minimal will be observed. She'll follow-up in 3 months. Bariatric Checklist Checklist: Plan: Checklist: EGD: 1. Hiatal hernia: 2. H. Pylori: HgbA1c: Vitamin D: Smoking: Former smoker Primary care physician referral: Yaima Psychiatry clearance: Cardiology clearance: Sleep study: Diet journal: VTE risk score: VTE risk level: Rehab needs at discharge:
== END | disposition home or self-care (01) ==
LOC: BARWHC3 13:26
PROVIDERS: ATTEND Surgery
DX: Z46.51 Encounter for fitting and adjustment of gastric lap band (principal); Z87.891 Personal history of nicotine dependence
CPT/HCPCS: 99211

== ENCOUNTER → 2020-01-16 | Outpatient (CLI) | payer MEDICARE ==
--- NOTE | 2020-01-20 07:47 | ECHOF ---
Referral Reason:I26.99 Other pulmonary embolism without acute cor MEASUREMENTS -------- HEIGHT: 157.5 cm WEIGHT: 102.1 kg BP: RVIDd: 3.8 cm (< 3.3) IVSd: 1.2 cm (0.6 - 1.1) LVIDd: 4.1 cm (3.9 - 5.3) LVPWd: 1.2 cm (0.6 - 1.1) IVSs: 1.6 cm LVIDs: 2.6 cm LVPWs: 1.8 cm LAESV Index (A-L): 28.41 ml/m Ao Diam: 2.5 cm (2.0 - 3.7) AV Cusp: 1.7 cm (1.5 - 2.6) MV EXCURSION: 13.261 mm (> 18.000) MV EF SLOPE: 84 mm/s (70 - 150) EPSS: 0.7 cm MV E Brown: 1.37 m/s MV DecT: 202 ms MV A Brown: 0.77 m/s MV E/A Ratio: 1.78 RAP: 5.00 mmHg RVSP: 39.47 mmHg FINDINGS -------- Sinus rhythm. This was a technically adequate study. The left ventricular size is normal. There is mild concentric left ventricular hypertrophy. Overa ll left ventricular systolic function is normal with, an EF between 55 - 60 %. The diastolic fillin g pattern is normal for the age of the patient 14.43. The right ventricle is mild to moderately enlarged. LA is midly dilated 29-33ml/m2. The right atrium is mildly enlarged. Interatrial and interventricular septum intact. There is mild aortic valve sclerosis. There is no evidence of aortic regurgitation. There is no e vidence of aortic stenosis. [id number]-[id number] mitral regurgitation is present. Mild tricuspid regurgitation present. There is mild pulmonary hypertension. The right ventricular systolic pressure, as measured by Doppler, is 39.47mmHg. There is no pulmonic regurgitation present. The aortic root size is normal. IVC Not well visulized. There is no pericardial effusion. CONCLUSIONS -------- 1. The left ventricular size is normal. 2. There is mild concentric left ventricular hypertrophy. 3. The diastolic filling pattern is normal for the age of the patient 14.43 4. The right ventricle is mild to moderately enlarged. 5. LA is midly dilated 29-33ml/m2. 6. The right atrium is mildly enlarged. 7. There is mild aortic valve sclerosis. 8. Loia-ja-tsyustpk mitral regurgitation is present. 9. Mild tricuspid regurgitation present. 10. There is mild pulmonary hypertension. 11. The right ventricular systolic pressure, as measured by Doppler, is 39.47mmHg. IT NETWORK ADMINISTRATOR: Jeannine Lynne RDCS
== END | disposition home or self-care (01) ==
LOC: RADECHMAIN 12:06
PROVIDERS: ATTEND Internal Medicine
DX: I08.1 Rheumatic disorders of both mitral and tricuspid valves (principal); I27.20 Pulmonary hypertension, unspecified
CPT/HCPCS: 93306

== ENCOUNTER → 2020-03-23 | Outpatient (CLI) | payer MEDICARE ==
--- NOTE | 2020-03-24 07:14 | CT ---
EXAMINATION TYPE: CT chest abdomen w con DATE OF EXAM: 03/23/2020 COMPARISON: 08/26/2014 HISTORY: LUQ pain CT DLP: 1625.4 mGycm CONTRAST: CT scan of the chest, abdomen is performed with Oral Contrast and with IV Contrast, patient injected with 80cc mL of Isovue 300. CT Chest: LUNGS: The lungs are clear and free of infiltrate or atelectasis. No pulmonary nodule or mass is det ected. No pleural effusion or CT evidence of interstitial lung disease. MEDIASTINUM: Thoracic aorta is of normal caliber. The heart is enlarged. No evidence for mediastin al mass or adenopathy. HILAR STRUCTURES: No evidence for mass. No hilar adenopathy is appreciated. OTHER: No significant abnormality. CONTRAST CT ABDOMEN FINDINGS: LIVER/GB: There is evidence of cholelithiasis. Underlying hepatic steatosis is mild in degree. No spa ce occupying hepatic lesion. Biliary tree is of normal caliber. PANCREAS: No inflammation. No distinct mass. SPLEEN: No splenic enlargement. No lesion seen. ADRENALS: No nodule. No thickening. KIDNEYS/BLADDER: No hydronephrosis. No nephrolithiasis. Simple cyst upper pole left kidney is uncha nged. There BOWEL: Normal appendix. Normal bowel caliber. No inflammation. LYMPH NODES: No greater than 1cm abdominal or pelvic lymph nodes are appreciated. AORTA: No significant abnormality. OSSEOUS STRUCTURES: Degenerative changes noted. OTHER: No significant additional abnormality is seen. IMPRESSION: 1. Mild hepatic steatosis. 2. Simple cyst upper pole left kidney. 3. Cardiomegaly with coronary artery calcifications.
== END | disposition home or self-care (01) ==
LOC: RADCTMAIN 15:16
PROVIDERS: ATTEND Internal Medicine
DX: K76.0 Fatty (change of) liver, not elsewhere classified (principal); N28.1 Cyst of kidney, acquired; I51.7 Cardiomegaly; I25.10 Atherosclerotic heart disease of native coronary artery without angina pectoris
CPT/HCPCS: 82565; 84520; 71260; 74160; 36415; Q9967

== ENCOUNTER → 2020-04-12 | Outpatient (CLI) | payer MEDICARE ==
[2020-04-12 14:42] VITALS: BP 188/95; PULSE 81; TEMP 98.4; BMI 43.5
--- NOTE | 2020-04-12 15:00 | P.HPBAR ---
Bariatric H&P - History & Physicial H&P Date: 04/12/20 History & Physicial: Visit/CC: follow up Patient initial contact: Initial weight: 112.037 kg Initial weight in pounds: 247.00 Height: 5 ft Initial BMI: 48.2 Last weight: Current weight: 101.151 kg Current weight in pounds: 223.00 Current BMI: 43.5 [place] body weight (based on NIH guidelines): 45.359 kg Excess body weight loss: 16.3% The patient is a 80 year-old F who presents for Bariatric Assessment. Patient presents today for with complaints of epigastric pain. She describes a chronic epigastric pain. Past Medical History Past Medical History: Coronary Artery Disease (CAD), Cancer, Chest Pain / Angina, GERD/Reflux, Hyperlipidemia, Hypertension, Osteoarthritis (OA), Pulmonary Embolus (PE), Thyroid Disorder Additional Past Medical History / Comment(s): SKIN CANCER, "AFTER 2ND KNEE SX KIDNEYS SHUT DOWN-SINCE RESOLVED", DJD, SVT, PALPITATIONS, glaucoma, recent "viral" infection per pt-just finished antibiotics, feels much better History of Any Multi-Drug Resistant Organisms: None Reported Past Surgical History: Appendectomy, Bariatric Surgery, Cardiac Ablation, Cholecystectomy, Heart Catheterization With Stent, Hysterectomy, Joint Replacement Additional Past Surgical History / Comment(s): Right total knee arthroplasty in 2008 with revision in 2012, right heel cord repair, right knee meniscus repair, right knee adhesion repair, RIGHT EYE CATARACT, NIKKO ROTATOR CUFF REPAIR, NIKKO CARPAL TUNNEL, RIGHT KNEE ARTHROSCOPIC, COLONOSCOPY X3, lap band, spinal fusion, right ankle fracture repair lap band [id number] Past Anesthesia/Blood Transfusion Reactions: Previous Problems w/ Anesthesia Additional Past Anesthesia/Blood Transfusion Reaction / Comm: "AFTER 2ND KNEE SX-KIDNEYS SHUT DOWN" Date of Last Stent Placement:: 2014 Past Psychological History: Depression Additional Psychological History / Comment(s): PT IS INDEPENDANT. LIVES WITH HER ,SON AND 3 GRAND CHILDREN. HAS 1 PET CAT. PT HAS 6 PORCH STEPS OR A RAMP SHE CAN USE. NO OUTSIDE SERVICES RECEIVED. NO MEDICAL EQUIPMENT. Smoking Status: Former smoker Past Alcohol Use History: Rare Additional Past Alcohol Use History / Comment(s): Patient was a smoker of 2 packs per day for 25 years ago quit 30 years ago. No marijuana, street drug use or alcohol use. Patient is and lives at home with her . Her is wheelchair bound. Past Drug Use History: None Reported - Past Family History Brother(s) Additional Family Medical History / Comment(s): Patient had 1 brother that at age 64 from a myocardial infarction. Sister(s) Additional Family Medical History / Comment(s): Patient has 3 sisters and one has history of Guillain-barre syndrome. Son(s) Additional Family Medical History / Comment(s): Patient has one son with history of neurofibrmatosis type I and type II. Mother Family Medical History: Cancer Additional Family Medical History / Comment(s): Mother at age 45 from COLON CANCER Father Family Medical History: Congestive Heart Failure (CHF), Myocardial Infarction ([place]) Additional Family Medical History / Comment(s): Father at age 45 from myocardial infarction. Surgical - Exam Vital Signs Temp Pulse BP 98.4 F 81 188/95 04/12/20 14:34 04/12/20 14:34 04/12/20 14:34 - General well developed, well nourished, no distress - Eyes PERRL - ENT normal pinna - Neck no masses - Respiratory normal expansion - Cardiovascular Rhythm: regular - Abdomen Abdomen: soft, non tender Bariatric Assessment & Plan Plan: (Pain. Patient be scheduled for EGD. Bariatric Checklist Checklist: Plan: Checklist: EGD: 1. Hiatal hernia: 2. H. Pylori: HgbA1c: Vitamin D: Smoking: Former smoker Primary care physician referral: Yaima Psychiatry clearance: Cardiology clearance: Sleep study: Diet journal: VTE risk score: VTE risk level: Rehab needs at discharge:
== END | disposition home or self-care (01) ==
LOC: BARWHC3 14:22
PROVIDERS: ATTEND Surgery
DX: R10.13 Epigastric pain (principal); Z90.49 Acquired absence of other specified parts of digestive tract; Z98.84 Bariatric surgery status; Z98.890 Other specified postprocedural states; Z90.710 Acquired absence of both cervix and uterus
CPT/HCPCS: 99211

== ENCOUNTER 2020-04-16 09:29 | Observation (INO) | payer MEDICARE ==
[2020-04-16] MEDS ORDERED: HYDROmorphone 0.5 MG/0.5 ML SYRINGE IVP STA (09:55)
--- NOTE | 2020-04-16 09:56 | ED ---
General Adult HPI - General Chief complaint: Abdominal Pain Stated complaint: Sent by PCP - Abd Pain Time Seen by Provider: 04/16/20 09:41 Source: patient, RN notes reviewed, old records reviewed Mode of arrival: wheelchair Limitations: no limitations - History of Present Illness Initial comments: 80-year-old female presenting for evaluation of abdominal pain. Patient had previous lap band and is status post lap band removal in July of this year. She's had some left upper abdominal pain for the past one month. She had a computed tomography scan 3 weeks ago. She was seen by her primary care physician today and sent to the emergency department for evaluation of left upper abdominal pain. No vomiting. Normal bowel movements. No fever. - Related Data Home Medications Medication Instructions Recorded Confirmed Atorvastatin [Lipitor] 40 mg PO HS 07/07/19 04/12/20 Evolocumab [Repatha Syringe] 140 mg SQ Q14D 07/07/19 04/12/20 HYDROcodone/APAP 10-325MG [[place] 1 tab PO Q6H PRN 07/07/19 04/12/20 10-325] Nebivolol HCl [Bystolic] 5 mg PO DAILY 07/07/19 04/12/20 Omeprazole 40 mg PO DAILY 07/07/19 04/12/20 Previous Rx's Medication Instructions Recorded Docusate [Colace] 100 mg PO BID #20 capsule 07/30/19 HYDROcodone/APAP 5-325MG [[place] 1 tab PO Q6HR PRN #10 tab 07/30/19 5-325] Allergies Allergy/AdvReac Type Severity Reaction Status Date / Time clindamycin Allergy Swelling, Verified 04/16/20 09:36 ITCHING,NAUSEA AND VOMITING ezetimibe [From Zetia] Allergy Rash/Hives Verified 04/16/20 09:36 rosuvastatin [From Crestor] Allergy Rash/Hives Verified 04/16/20 09:36 Sulfa (Sulfonamide Allergy Swelling Verified 04/16/20 09:36 Antibiotics) Tetracyclines Allergy Swelling Verified 04/16/20 09:36 Review of Systems ROS Statement: Those systems with pertinent positive or pertinent negative responses have been documented in the HPI. ROS Other: All systems not noted in ROS Statement are negative. Past Medical History Past Medical History: Coronary Artery Disease (CAD), Cancer, Chest Pain / Angina, GERD/Reflux, Hyperlipidemia, Hypertension, Osteoarthritis (OA), Pulmonary Embolus (PE), Thyroid Disorder Additional Past Medical History / Comment(s): SKIN CANCER, "AFTER 2ND KNEE SX KIDNEYS SHUT DOWN-SINCE RESOLVED", DJD, SVT, PALPITATIONS, glaucoma, recent "viral" infection per pt-just finished antibiotics, feels much better, bilateral pulmonary embolism History of Any Multi-Drug Resistant Organisms: None Reported Past Surgical History: Appendectomy, Bariatric Surgery, Cardiac Ablation, Chol ecystectomy, Heart Catheterization With Stent, Hysterectomy, Joint Replacement Additional Past Surgical History / Comment(s): Right total knee arthroplasty in 2009 with revision in 2013, right heel cord repair, right knee meniscus repair, right knee adhesion repair, RIGHT EYE CATARACT, NIKKO ROTATOR CUFF REPAIR, NIKKO CARPAL TUNNEL, RIGHT KNEE ARTHROSCOPIC, COLONOSCOPY X3, lap band, spinal fusion, right ankle fracture repair lap band [id number] Past Anesthesia/Blood Transfusion Reactions: Previous Problems w/ Anesthesia Additional Past Anesthesia/Blood Transfusion Reaction / Comment(s): "AFTER 2ND KNEE SX-KIDNEYS SHUT DOWN" Date of Last Stent Placement:: 2014 Past Psychological History: Depression Smoking Status: Former smoker Past Alcohol Use History: Rare Past Drug Use History: None Reported - Past Family History Brother(s) Additional Family Medical History / Comment(s): Patient had 1 brother that at age 64 from a myocardial infarction. Sister(s) Additional Family Medical History / Comment(s): Patient has 3 sisters and one has history of Guillain-barre syndrome. Son(s) Additional Family Medical History / Comment(s): Patient has one son with history of neurofibrmatosis type I and type II. Mother Family Medical History: Cancer Additional Family Medical History / Comment(s): Mother at age 45 from COLON CANCER Father Family Medical History: Congestive Heart Failure (CHF), Myocardial Infarction ([place]) Additional Family Medical History / Comment(s): Father at age 45 from myocardial infarction. General Exam Limitations: no limitations General appearance: alert, in no apparent distress Head exam: Present: atraumatic, normocephalic Eye exam: Present: normal appearance, PERRL ENT exam: Present: normal exam Neck exam: Present: normal inspection. Absent: tenderness, meningismus Respiratory exam: Present: normal lung sounds bilaterally. Absent: respiratory distress, wheezes Cardiovascular Exam: Present: regular rate, normal rhythm GI/Abdominal exam: Present: soft, distended, tenderness (Tender, distended left upper abdomen). Absent: guarding, rebound Extremities exam: Present: normal inspection, normal capillary refill. Absent: pedal edema Neurological exam: Present: alert, oriented X3, CN II-XII intact. Absent: motor sensory deficit Psychiatric exam: Present: normal affect, normal mood Skin exam: Present: warm, dry, intact. Absent: cyanosis, diaphoretic Course Vital Signs 04/16/20 09:30 Temperature 97.0 F L Pulse Rate 76 Respiratory 18 Rate Blood Pressure 164/82 O2 Sat by Pulse 96 Oximetry Medical Decision Making - Medical Decision Making 80-year-old female with worsening left upper abdominal pain. Patient does have a fullness and tenderness in the left upper quadrant. She had a CT 3 weeks ago however in the interval time pain has worsened. She has a normal CBC, she has a mild lactic acidosis. X-rays negative for obstruction or intraperitoneal free air. I did discuss case with Dr. Do who knows patient. He recommends CT with oral contrast, patient will be admitted awaiting these test results. CT has been ordered. - Lab Data Result diagrams: 04/16/20 09:55 04/16/20 09:55 Lab Results 04/16/20 04/16/20 04/16/20 Range/Units 09:55 09:55 09:55 WBC 11.1 H (3.8-10.6) k/uL RBC 4.83 (3.80-5.40) m/uL Hgb 14.7 (11.4-16.0) gm/dL Hct 45.2 (34.0-46.0) % MCV 93.6 (80.0-100.0) fL MCH 30.5 (25.0-35.0) pg MCHC 32.6 (31.0-37.0) g/dL RDW 12.3 (11.5-15.5) % Plt Count 292 (150-450) k/uL Neutrophils % 59 % Lymphocytes % 33 % Monocytes % 5 % Eosinophils % 1 % Basophils % 1 % Neutrophils # 6.5 (1.3-7.7) k/uL Lymphocytes # 3.6 (1.0-4.8) k/uL Monocytes # 0.6 (0-1.0) k/uL Eosinophils # 0.1 (0-0.7) k/uL Basophils # 0.1 (0-0.2) k/uL PT 9.4 (9.0-12.0) sec INR 0.9 (<1.2) APTT 23.0 (22.0-30.0) sec Sodium 136 L (137-145) mmol/L Potassium 4.7 (3.5-5.1) mmol/L Chloride 102 (98-107) mmol/L Carbon Dioxide 24 (22-30) mmol/L Anion Gap 10 mmol/L BUN 20 H (7-17) mg/dL Creatinine 1.01 (0.52-1.04) mg/dL Est GFR (CKD-EPI)AfAm 62 (>60 ml/min/1.73 sqM) Est GFR (CKD-EPI)NonAf 54 (>60 ml/min/1.73 sqM) Glucose 145 H (74-99) mg/dL Plasma Lactic Acid Kj (0.7-2.0) mmol/L Calcium 9.7 (8.4-10.2) mg/dL Total Bilirubin 0.9 (0.2-1.3) mg/dL AST 30 (14-36) U/L ALT 19 (4-34) U/L Alkaline Phosphatase 139 H (38-126) U/L Total Protein 7.5 (6.3-8.2) g/dL Albumin 4.2 (3.5-5.0) g/dL Amylase 47 (30-110) U/L Lipase 63 (23-300) U/L 04/16/20 Range/Units 09:55 WBC (3.8-10.6) k/uL RBC (3.80-5.40) m/uL Hgb (11.4-16.0) gm/dL Hct (34.0-46.0) % MCV (80.0-100.0) fL MCH (25.0-35.0) pg MCHC (31.0-37.0) g/dL RDW (11.5-15.5) % Plt Count (150-450) k/uL Neutrophils % % Lymphocytes % % Monocytes % % Eosinophils % % Basophils % % Neutrophils # (1.3-7.7) k/uL Lymphocytes # (1.0-4.8) k/uL Monocytes # (0-1.0) k/uL Eosinophils # (0-0.7) k/uL Basophils # (0-0.2) k/uL PT (9.0-12.0) sec INR (<1.2) APTT (22.0-30.0) sec Sodium (137-145) mmol/L Potassium (3.5-5.1) mmol/L Chloride (98-107) mmol/L Carbon Dioxide (22-30) mmol/L Anion Gap mmol/L BUN (7-17) mg/dL Creatinine (0.52-1.04) mg/dL Est GFR (CKD-EPI)AfAm (>60 ml/min/1.73 sqM) Est GFR (CKD-EPI)NonAf (>60 ml/min/1.73 sqM) Glucose (74-99) mg/dL Plasma Lactic Acid Kj 3.2 H* (0.7-2.0) mmol/L Calcium (8.4-10.2) mg/dL Total Bilirubin (0.2-1.3) mg/dL AST (14-36) U/L ALT (4-34) U/L Alkaline Phosphatase (38-126) U/L Total Protein (6.3-8.2) g/dL Albumin (3.5-5.0) g/dL Amylase (30-110) U/L Lipase (23-300) U/L Disposition Clinical Impression: Abdominal pain Disposition: ADMITTED IP TO THIS [facility] Condition: Stable Is patient prescribed a controlled substance at d/c from ED?: No Referrals: Amelia Erwin MD [Primary Care Provider] - 1-2 days Decision to Admit Reason: Admit from EC Decision Date: 04/16/20 Decision Time: 11:28
[2020-04-16 10:25] LABS: Basophils # (A) 0.1 k/uL (0-0.2); Basophils % (A) 1 %; Eosinophils # (A) 0.1 k/uL (0-0.7); Eosinophils % (A) 1 %; HCT 45.2 % (34.0-46.0); HGB 14.7 gm/dL (11.4-16.0); Lymphocytes # (A) 3.6 k/uL (1.0-4.8); Lymphocytes % (A) 33 %; MCH 30.5 pg (25.0-35.0); MCHC 32.6 g/dL (31.0-37.0); MCV 93.6 fL (80.0-100.0); Mean Platelet Volume 7.4; Monocytes # (A) 0.6 k/uL (0-1.0); Monocytes % (A) 5 %; Neutrophils # (A) 6.5 k/uL (1.3-7.7); Neutrophils % (A) 59 %; Platelet Count 292 k/uL (150-450); RBC 4.83 m/uL (3.80-5.40); RDW 12.3 % (11.5-15.5); WBC 11.1 k/uL (3.8-10.6)
[2020-04-16 10:34] LABS: INR 0.9 (<1.2); Prothrombin Time 9.4 sec (9.0-12.0)
--- NOTE | 2020-04-16 10:37 | XR ---
EXAMINATION TYPE: XR KUB DATE OF EXAM: 04/16/2020 10:30 AM CLINICAL HISTORY: Abdominal pain. History of LAP-BAND removal July 2019 with pain at port site s ángela surgery. TECHNIQUE: Upright images of the abdomen and pelvis were obtained COMPARISON: CT chest and abdomen 03/23/2020. FINDINGS: Surgical clips of the right upper quadrant. Suture material near the GE junction. Scattered gas is seen in non-distended small bowel loops. Gas and fecal material is seen in non-distended colo n. There is no visceromegaly, pneumoperitoneum. Pelvic phleboliths. The lung bases are clear. Marked degenerative changes of the spine. Degenerative changes of the bilateral hips. IMPRESSION: 1. Nonspecific bowel gas pattern. 2. No pneumoperitoneum.
[2020-04-16 10:44] LABS: Albumin 4.2 g/dL (3.5-5.0); Calcium 9.7 mg/dL (8.4-10.2); Total Bilirubin 0.9 mg/dL (0.2-1.3); Total Protein 7.5 g/dL (6.3-8.2)
[2020-04-16] MEDS ORDERED: SODIUM CHLORIDE 0.9% 500 ML 500 ML IV ONE (10:47)
[2020-04-16 10:53] LABS: Potassium 4.7 mmol/L (3.5-5.1)
[2020-04-16] MEDS ORDERED: IOPAMIDOL CONTRAST (ORAL USE) VIAL PO PRN (11:25)
[2020-04-16] MEDS ORDERED: ONDANSETRON 4 MG/2 ML VIAL IVP PRN (11:26)
[2020-04-16] MEDS ORDERED: NALOXONE 0.4 MG/ML 1 ML VIAL IV PRN (11:26)
[2020-04-16 11:54] LABS: Appearance,Urine Clear (Clear); Bilirubin,Urine Negative (Negative); Blood,Urine Negative (Negative); Color,Urine Yellow; Glucose,Urine (UA) Negative (Negative); Ketones,Urine Negative (Negative); Leukocyte Esterase,Urine Negative (Negative); Nitrite,Urine Negative (Negative); PH, Urine 5.5 (5.0-8.0); Protein,Urine Negative (Negative); Specific Gravity,Urine 1.009 (1.001-1.035); Urobilinogen,Urine <2.0 mg/dL (<2.0)
[2020-04-16] MEDS: SODIUM CHLORIDE 0.9% 1,000 ML IV SCH (12:42)
[2020-04-16] MEDS: HYDROmorphone 0.5 MG/0.5 ML SYRINGE IVP PRN ×2 (12:45→17:05)
--- NOTE | 2020-04-16 13:28 | CT ---
EXAMINATION TYPE: CT abdomen pelvis w con DATE OF EXAM: 04/16/2020 COMPARISON: CT chest abdomen 03/23/2020. CT chest 08/26/2014. MRI abdomen 04/03/2013. CT abdomen 2011. HISTORY: LUQ pain CT DLP: 1876.2 mGycm Automated exposure control for dose reduction was used. TECHNIQUE: Helical acquisition of images was performed from the lung bases through the pelvis. CONTRAST: Performed without Oral Contrast and with IV Contrast, patient injected with 100 mL of Isovue 300. FINDINGS: LUNG BASES: Calcified granuloma of the right lower lobe. Redemonstrated 3 mm solid pulmonary nodule o f the left lower lobe (204:20) is unchanged versus 08/26/2014 and most likely benign. Redemonstrated p ericardial calcification. No pericardial or pleural effusion. LIVER: Mild fatty liver. BILIARY SYSTEM: Status post cholecystectomy. No intrahepatic or extrahepatic biliary ductal dilatatio n. PANCREAS: Normal. SPLEEN: Normal. Splenule inferior to the tail of the pancreas is unchanged versus 09/22/2011 (201:28). ADRENALS: Right adrenal nodule measures 2.0 x 1.7 cm, previously measuring 1.9 x 1.6 cm on 09/22/2011 comparison, which is indeterminate but likely represents benign adenoma. KIDNEYS: No hydronephrosis. Simple cyst of the left renal upper pole. BOWEL: No obstruction or thickening. Redemonstrated suture material near the GE junction consistent with history of prior LAP-BAND removal. A few scattered diverticula of the colon are seen. No acute d iverticulitis. PERITONEUM: No pneumoperitoneum. No free fluid. LYMPH NODES: No lymphadenopathy. PELVIS: Nondistended urinary bladder. Status post hysterectomy. VASCULATURE: No abdominal aortic aneurysm. Marked calcified atherosclerotic disease of the abdominal aorta. MUSCULOSKELETAL: Marked degenerative changes of the spine. Diffuse bridging syndesmophytes of the vi sualized thoracolumbar spine, findings may represent diffuse idiopathic skeletal hyperostosis (DISH). IMPRESSION: 1. No acute abdominopelvic process to explain patient's left upper quadrant pain. 2. Mild fatty liver. 3. Chronic findings as above.
--- NOTE | 2020-04-16 15:18 | P.GSHP ---
History of Present Illness H&P Date: 04/16/20 CHIEF COMPLAINT: Left upper quadrant abdominal pain HISTORY OF PRESENT ILLNESS: Patient seen and examined in the ER with Dr. Do. This is a 80-year-old female with a known history of lap band with removal of lap band in July 2019. She also has a history of coronary artery disease with stent, bilateral PE, hyperlipidemia, hypertension, thyroid disorder, cholecystectomy, hysterectomy and appendectomy. Patient presents to emergency room with complaints of left upper quadrant abdominal pain for the last month. Patient denies any nausea or vomiting. She's been having normal bowel movements. Denies any fever. PAST MEDICAL HISTORY: See list. PAST SURGICAL HISTORY: See list. MEDICATIONS: See list. ALLERGIES: See list. SOCIAL HISTORY: No illicit drug use. REVIEW OF SYSTEMS: CONSTITUTIONAL: Denies fever or chills. HEENT: Denies blurred vision, vision changes, or eye pain. Denies hemoptysis CARDIOVASCULAR: Denies chest pain or pressure. RESPIRATORY: No shortness of breath. GASTROINTESTINAL: See HPI for pertinent findings HEMATOLOGIC: Denies bleeding disorders. GENITOURINARY: Denies any blood in urine or increased urinary frequency. SKIN: Denies pruitis. Denies rash. PHYSICAL EXAM: VITAL SIGNS: Reviewed GENERAL: Well-developed in no acute distress. HEENT: No sclera icterus. Extraocular movements grossly intact. Moist buccal mucosa. Head is atraumatic, normocephalic. No nasal drainage. ABDOMEN: Soft. Nondistended. Left upper quadrant tenderness NEUROLOGIC: Alert and oriented. Cranial nerves II through XII grossly intact. LABORATORY DATA: WBC 11.1 hemoglobin 14.7 sodium 136 creatinine 1.01 lactic 3.2 down to 1.1 alk phos 139 UA negative IMAGING: Computed tomography scan of abdomen shows no acute abdominal pelvic process to explain patient's left upper quadrant pain. Mild fatty liver. Chronic findings. ASSESSMENT: 1. Left upper quadrant abdominal pain possibly related to scar tissue. Computed tomography scan abdomen negative 2. History of lap band with removal of lap band system in July 2019 3. Dehydration PLAN: -We will monitor patient -No plan for surgical intervention -Start full liquid diet -Continue with IV fluids -Continue pain medications as needed -Consult medicine for medical management Physician Senior Ui Designer note has been reviewed by physician. Signing provider agrees with the documented findings, assessment, and plan of care. Past Medical History Past Medical History: Coronary Artery Disease (CAD), Cancer, Chest Pain / Angina, GERD/Reflux, Hyperlipidemia, Hypertension, Osteoarthritis (OA), Pulmonary Embolus (PE), Thyroid Disorder Additional Past Medical History / Comment(s): SKIN CANCER, "AFTER 2ND KNEE SX KIDNEYS SHUT DOWN-SINCE RESOLVED", DJD, SVT, PALPITATIONS, glaucoma, recent "viral" infection per pt-just finished antibiotics, feels much better, bilateral pulmonary embolism History of Any Multi-Drug Resistant Organisms: None Reported Past Surgical History: Appendectomy, Bariatric Surgery, Cardiac Ablation, Cholecystectomy, Heart Catheterization With Stent, Hysterectomy, Joint Replacement Additional Past Surgical History / Comment(s): Right total knee arthroplasty in 2008 with revision in 2013, right heel cord repair, right knee meniscus repair, right knee adhesion repair, RIGHT EYE CATARACT, NIKKO ROTATOR CUFF REPAIR, NIKKO CARPAL TUNNEL, RIGHT KNEE ARTHROSCOPIC, COLONOSCOPY X3, lap band, spinal fusion, right ankle fracture repair lap band [id number] Past Anesthesia/Blood Transfusion Reactions: Previous Problems w/ Anesthesia Additional Past Anesthesia/Blood Transfusion Reaction / Comment(s): "AFTER 2ND KNEE SX-KIDNEYS SHUT DOWN" Date of Last Stent Placement:: 2014 Past Psychological History: Depression Smoking Status: Former smoker Past Alcohol Use History: Rare Past Drug Use History: None Reported - Past Family History Brother(s) Additional Family Medical History / Comment(s): Patient had 1 brother that at age 64 from a myocardial infarction. Sister(s) Additional Family Medical History / Comment(s): Patient has 3 sisters and one has history of Guillain-barre syndrome. Son(s) Additional Family Medical History / Comment(s): Patient has one son with history of neurofibrmatosis type I and type II. Mother Family Medical History: Cancer Additional Family Medical History / Comment(s): Mother at age 45 from COLON CANCER Father Family Medical History: Congestive Heart Failure (CHF), Myocardial Infarction ([place]) Additional Family Medical History / Comment(s): Father at age 45 from myocardial infarction. Medications and Allergies Home Medications Medication Instructions Recorded Confirmed Type Evolocumab [Repatha Syringe] 140 mg SQ Q14D 07/07/19 04/16/20 History HYDROcodone/APAP 10-325MG [[place] 1 tab PO Q12H PRN 07/07/19 04/16/20 History 10-325] Nebivolol HCl [Bystolic] 5 mg PO HS 07/07/19 04/16/20 History Omeprazole 40 mg PO DAILY 07/07/19 04/16/20 History Apixaban [Eliquis] 5 mg PO BID 04/16/20 04/16/20 History Escitalopram [Lexapro] 10 mg PO HS 04/16/20 04/16/20 History Allergies Allergy/AdvReac Type Severity Reaction Status Date / Time clindamycin Allergy Swelling, Verified 04/16/20 12:36 ITCHING,NAUSEA AND VOMITING ezetimibe [From Zetia] Allergy Rash/Hives Verified 04/16/20 12:36 rosuvastatin [From Crestor] Allergy Rash/Hives Verified 04/16/20 12:36 Sulfa (Sulfonamide Allergy Swelling Verified 04/16/20 12:36 Antibiotics) Tetracyclines Allergy Swelling Verified 04/16/20 12:36 metformin AdvReac Diarrhea Verified 04/16/20 12:36 Surgical - Exam Vital Signs Temp Pulse Resp BP Pulse Ox 97.0 F L 76 18 164/82 96 04/16/20 09:30 04/16/20 09:30 04/16/20 09:30 04/16/20 09:30 04/16/20 09:30 Results - Labs 04/16/20 09:55 04/16/20 09:55 Abnormal Lab Results - Last 24 Hours (Table) 04/16/20 04/16/20 04/16/20 Range/Units 09:55 09:55 09:55 WBC 11.1 H (3.8-10.6) k/uL Sodium 136 L (137-145) mmol/L BUN 20 H (7-17) mg/dL Glucose 145 H (74-99) mg/dL Plasma Lactic Acid Kj 3.2 H* (0.7-2.0) mmol/L Alkaline Phosphatase 139 H (38-126) U/L Diabetes panel 04/16/20 Range/Units 09:55 Sodium 136 L (137-145) mmol/L Potassium 4.7 (3.5-5.1) mmol/L Chloride 102 (98-107) mmol/L Carbon Dioxide 24 (22-30) mmol/L BUN 20 H (7-17) mg/dL Creatinine 1.01 (0.52-1.04) mg/dL Glucose 145 H (74-99) mg/dL Calcium 9.7 (8.4-10.2) mg/dL AST 30 (14-36) U/L ALT 19 (4-34) U/L Alkaline Phosphatase 139 H (38-126) U/L Total Protein 7.5 (6.3-8.2) g/dL Albumin 4.2 (3.5-5.0) g/dL Calcium panel 04/16/20 Range/Units 09:55 Calcium 9.7 (8.4-10.2) mg/dL Albumin 4.2 (3.5-5.0) g/dL Pituitary panel 04/16/20 Range/Units 09:55 Sodium 136 L (137-145) mmol/L Potassium 4.7 (3.5-5.1) mmol/L Chloride 102 (98-107) mmol/L Carbon Dioxide 24 (22-30) mmol/L BUN 20 H (7-17) mg/dL Creatinine 1.01 (0.52-1.04) mg/dL Glucose 145 H (74-99) mg/dL Calcium 9.7 (8.4-10.2) mg/dL Adrenal panel 04/16/20 Range/Units 09:55 Sodium 136 L (137-145) mmol/L Potassium 4.7 (3.5-5.1) mmol/L Chloride 102 (98-107) mmol/L Carbon Dioxide 24 (22-30) mmol/L BUN 20 H (7-17) mg/dL Creatinine 1.01 (0.52-1.04) mg/dL Glucose 145 H (74-99) mg/dL Calcium 9.7 (8.4-10.2) mg/dL Total Bilirubin 0.9 (0.2-1.3) mg/dL AST 30 (14-36) U/L ALT 19 (4-34) U/L Alkaline Phosphatase 139 H (38-126) U/L Total Protein 7.5 (6.3-8.2) g/dL Albumin 4.2 (3.5-5.0) g/dL
[2020-04-16] MEDS: PANTOPRAZOLE 40 MG TABLET PO SCH (16:54)
[2020-04-16] MEDS: HYDROcodone/APAP 10-325MG 1 EACH TAB PO PRN (18:48)
[2020-04-16] MEDS: DICYCLOMINE 10 MG CAP PO SCH ×2 (18:48→21:43)
[2020-04-16 20:00] LABS: Glucose,Whole Blood 157 mg/dL (75-99)
[2020-04-16] MEDS ORDERED: NEBIVOLOL 5 MG TAB PO SCH (21:00)
[2020-04-16] MEDS ORDERED: ESCITALOPRAM 10 MG TAB PO SCH (21:00)
[2020-04-16] MEDS: APIXABAN 5 MG TAB PO SCH (21:43)
[2020-04-16 21:52] VITALS: RESP 18
[2020-04-17] MEDS: SODIUM CHLORIDE 0.9% 1,000 ML IV SCH (01:40)
[2020-04-17] MEDS: HYDROmorphone 0.5 MG/0.5 ML SYRINGE IVP PRN (03:07)
[2020-04-17 06:11] LABS: Glucose,Whole Blood 148 mg/dL (75-99)
[2020-04-17 07:59] VITALS: BP 121/77; PULSE 69; TEMP 97.7
[2020-04-17] MEDS: PANTOPRAZOLE 40 MG TABLET PO SCH (07:59)
[2020-04-17] MEDS: HYDROcodone/APAP 10-325MG 1 EACH TAB PO PRN (07:59)
[2020-04-17] MEDS: DICYCLOMINE 10 MG CAP PO SCH (07:59)
[2020-04-17] MEDS: APIXABAN 5 MG TAB PO SCH (07:59)
[2020-04-17 08:13] LABS: Basophils % (A) 0 %; Eosinophils # (A) 0.1 k/uL (0-0.7); Eosinophils % (A) 1 %; HCT 39.7 % (34.0-46.0); HGB 12.6 gm/dL (11.4-16.0); Lymphocytes # (A) 2.8 k/uL (1.0-4.8); Lymphocytes % (A) 36 %; MCH 30.4 pg (25.0-35.0); MCHC 31.8 g/dL (31.0-37.0); MCV 95.6 fL (80.0-100.0); Mean Platelet Volume 7.1; Monocytes # (A) 0.5 k/uL (0-1.0); Monocytes % (A) 6 %; Neutrophils # (A) 4.2 k/uL (1.3-7.7); Neutrophils % (A) 54 %; Platelet Count 224 k/uL (150-450); RBC 4.15 m/uL (3.80-5.40); RDW 12.4 % (11.5-15.5); WBC 7.7 k/uL (3.8-10.6)
--- NOTE | 2020-04-17 08:18 | P.CONS ---
History of Present Illness - Reason for Consult Consult date: 04/16/20 Medical management Requesting physician: Celso Do - Chief Complaint abdominal pain - History of Present Illness This is a 80-year-old female patient of mine with past medical history of degenerative joint disease, skin cancer, gastroesophageal reflux disease, hypertension, depression and generalized anxiety disorder, hyperlipidemia, glaucoma, SVT, hypothyroidism,Pulmonary embolism, colon polyp and history of coronary artery disease status post PCI of the LCx was done in 2014, and has been following with from cardiology on a regular basis, developed to have increased left upper quadrant abdominal pain was seen in the office last month and had CT scan of the chest and abdomen that was negative , she came yesterday with increased abdominal pain in the left upper quadrant, was seen earlier by and she is scheduled for EGD next month, but she was miserable in the office so she was sent to the ER and had another CT scan of the abdomen that was negative and she was admitted by surgery for observation. Review of Systems Constitutional: Reports chronic headaches, Reports weight gain, Denies anorexia, Denies lethargy, Denies weakness Eyes: denies as per HPI, denies blurred vision, denies bulging eye Ears, nose, mouth and throat: Denies dysphagia, Denies neck lump, Denies sore throat Cardiovascular: Reports decreased exercise tolerance, Reports dyspnea on exertion, Reports shortness of breath, Denies chest pain, Denies lightheadedness, Denies rapid heart beat, Denies syncope Respiratory: Denies cough, Denies cough with sputum, Denies home oxygen, Denies sleep apnea, Denies snoring, Denies wheezing Gastrointestinal: Reports abdominal pain, Reports bloating, Reports early satiety, Reports nausea, Denies change in bowel habits, Denies coffee ground emesis, Denies diarrhea, Denies dyspepsia, Denies heartburn, Denies hematemesis, Denies indigestion, Denies loss of appetite, Denies melena, Denies vomiting Genitourinary: Denies dysuria, Denies nocturia Menstruation: Reports postmenopausal Musculoskeletal: Denies myalgias Musculoskeletal: absent: ankle pain, ankle stiffness, ankle swelling, elbow pain, elbow stiffness, elbow swelling, foot pain, foot stiffness, foot swelling, hand pain, hand stiffness, hand swelling, hip pain, hip stiffness, hip swelling, knee pain, knee stiffness, knee swelling, shoulder pain, shoulder stiffness, shoulder swelling, wrist pain, wrist stiffness, wrist swelling Integumentary: Denies pruritus, Denies rash Neurological: Denies numbness, Denies weakness Psychiatric: Denies anxiety, Denies depression Endocrine: Denies fatigue, Denies weight change Past Medical History Past Medical History: Coronary Artery Disease (CAD), Cancer, Chest Pain / Angina, GERD/Reflux, Hyperlipidemia, Hypertension, Osteoarthritis (OA), Pulmonary Embolus (PE), Thyroid Disorder Additional Past Medical History / Comment(s): SKIN CANCER, "AFTER 2ND KNEE SX KIDNEYS SHUT DOWN-SINCE RESOLVED", DJD, SVT, PALPITATIONS, glaucoma, recent "viral" infection per pt-just finished antibiotics, feels much better, bilateral pulmonary embolism History of Any Multi-Drug Resistant Organisms: None Reported Past Surgical History: Appendectomy, Bariatric Surgery, Cardiac Ablation, Cholecystectomy, Heart Catheterization With Stent, Hysterectomy, Joint Replacement Additional Past Surgical History / Comment(s): Right total knee arthroplasty in 2008 with revision in 2012, right heel cord repair, right knee meniscus repair, right knee adhesion repair, RIGHT EYE CATARACT, NIKKO ROTATOR CUFF REPAIR, NIKKO CARPAL TUNNEL, RIGHT KNEE ARTHROSCOPIC, COLONOSCOPY X3, lap band, spinal fusion, right ankle fracture repair lap band -[id number] Past Anesthesia/Blood Transfusion Reactions: Previous Problems w/ Anesthesia Additional Past Anesthesia/Blood Transfusion Reaction / Comm: "AFTER 2ND KNEE SX-KIDNEYS SHUT DOWN" Date of Last Stent Placement:: 2014 Past Psychological History: Depression Smoking Status: Former smoker Past Alcohol Use History: Rare Additional Past Alcohol Use History / Comment(s): Smoker more than 1 pack per day starting at 17 years of age until she was 42 years of age. No illicit drug use, no alcohol abuse. Past Drug Use History: None Reported - Past Family History Brother(s) Additional Family Medical History / Comment(s): Patient had 1 brother that at age 64 from a myocardial infarction. Sister(s) Additional Family Medical History / Comment(s): Patient has 3 sisters and one has history of Guillain-barre syndrome. Son(s) Additional Family Medical History / Comment(s): Patient has one son with history of neurofibrmatosis type I and type II. Mother Family Medical History: Cancer Additional Family Medical History / Comment(s): Mother at age 45 from COLON CANCER Father Family Medical History: Congestive Heart Failure (CHF), Myocardial Infarction ([place]) Additional Family Medical History / Comment(s): Father at age 45 from myocardial infarction. Medications and Allergies Home Medications Medication Instructions Recorded Confirmed Type Evolocumab [Repatha Syringe] 140 mg SQ Q14D 07/07/19 04/16/20 History HYDROcodone/APAP 10-325MG [[place] 1 tab PO Q12H PRN 07/07/19 04/16/20 History 10-325] Nebivolol HCl [Bystolic] 5 mg PO HS 07/07/19 04/16/20 History Omeprazole 40 mg PO DAILY 07/07/19 04/16/20 History Apixaban [Eliquis] 5 mg PO BID 04/16/20 04/16/20 History Escitalopram [Lexapro] 10 mg PO HS 04/16/20 04/16/20 History Allergies Allergy/AdvReac Type Severity Reaction Status Date / Time clindamycin Allergy Swelling, Verified 04/16/20 12:36 ITCHING,NAUSEA AND VOMITING ezetimibe [From Zetia] Allergy Rash/Hives Verified 04/16/20 12:36 rosuvastatin [From Crestor] Allergy Rash/Hives Verified 04/16/20 12:36 Sulfa (Sulfonamide Allergy Swelling Verified 04/16/20 12:36 Antibiotics) Tetracyclines Allergy Swelling Verified 04/16/20 12:36 metformin AdvReac Diarrhea Verified 04/16/20 12:36 Physical Exam Vitals: Vital Signs Temp Pulse Resp BP Pulse Ox 04/16/20 15:01 98.1 F 64 14 124/62 99 04/16/20 12:22 97.6 F 75 14 129/57 96 04/16/20 09:30 97.0 F L 76 18 164/82 96 Intake and Output 04/16/20 04/16/20 04/16/20 06:59 14:59 22:59 Other: Weight 101.151 kg Physical examination: HEENT: head is atraumatic normocephalic pupils were equal round reactive to light and accommodations, extra ocular muscle movement were intact. Neck: supple no JVP. Chest : decrease breath sounds at the bases with few ronchi, no expiratory wheezes, no chest wall tenderness or intercostal retractions. Heart: first heart sound is depressed, second heart sound is normal there is YASMEEN 2/6 located at the left sternal border. Abdomen: soft , moderate tenderness in the left upper quadrant, no rebound or guarding positive bowel sounds. Extremities: trace edema no calf tenderness, DP +1 bilaterally. Neurologic examination: patient is awake alert and oriented X3 CN II-XII are grossly intact, muscle power 4/5 in upper ad lower extremities bilaterally. Results CBC & Chem 7: 04/16/20 09:55 04/16/20 09:55 Labs: Abnormal Lab Results - Last 24 Hours (Table) 04/16/20 04/16/20 04/16/20 Range/Units 09:55 09:55 09:55 WBC 11.1 H (3.8-10.6) k/uL Sodium 136 L (137-145) mmol/L BUN 20 H (7-17) mg/dL Glucose 145 H (74-99) mg/dL Plasma Lactic Acid Kj 3.2 H* (0.7-2.0) mmol/L Alkaline Phosphatase 139 H (38-126) U/L Assessment and Plan Assessment: Assessment and plan: 1. Left upper quadrant abdominal with negative [address] scan so far, may be related to scar tissues, we will continue with IVF and pain management and patient will be scheduled for EGD as outpatient, hopefully home in AM. 2. CAD post PCI of the LCX. we will continue with Bystolic 5 mg orally daily and Repath 140 mg SC q 2weeks. 3. Bilateral pulmonary emboli. we will continue with Eliquis 5 mg po bid for [address] scan of the chest last month did not show any evidence of PE. 4. Hypertension and hypertensive cardiovascular disease. we will continue with Bystolic 5 mg orally daily. 5. Hyperlipidemia. was intolerant to STATINS, we will continue with Repath 140 mg SC q 2weeks. 6. Diabetes mellitus type 2. we will continue with diet and exercise and weight loss, has been off Rx. 7. Moderate mitral regurgitation. echocardiogram was done recently. 8. Depression. we will continue with Lexapro 5 mg orally daily. 9. GERD. we will continue with Protonix 40 mg p daily. 10. DVT prophylaxis. we will continue with Eliquis 5 mg orally bid. 11. thank you for the consult, we will follow with you.
[2020-04-17 08:37] LABS: Albumin 3.1 g/dL (3.5-5.0); Calcium 8.8 mg/dL (8.4-10.2); Potassium 4.3 mmol/L (3.5-5.1); Total Bilirubin 0.6 mg/dL (0.2-1.3); Total Protein 5.6 g/dL (6.3-8.2)
--- NOTE | 2020-04-17 09:57 | P.PN ---
Subjective Progress Note Date: 04/17/20 This is a 80-year-old female patient of mine with past medical history of degenerative joint disease, skin cancer, gastroesophageal reflux disease, hypertension, depression and generalized anxiety disorder, hyperlipidemia, glaucoma, SVT, hypothyroidism,Pulmonary embolism, colon polyp and history of coronary artery disease status post PCI of the LCx was done in 2014, and has been following with from cardiology on a regular basis, developed to have increased left upper quadrant abdominal pain was seen in the office last month and had CT scan of the chest and abdomen that was negative , she came yesterday with increased abdominal pain in the left upper quadrant, was seen earlier by and she is scheduled for EGD next month, but she was miserable in the office so she was sent to the ER and had another CT scan of the abdomen that was negative and she was admitted by surgery for observation. 04/17: Patient is feeling better today since she was started on Bentyl 10 mg orally 3 times every day, she has limited on current pain management, on IV fluid, she appears to be better today she is tolerating her liquid diet very well, patient appears to be medically stable. Discharge, follow-up with us as an outpatient, with general surgery input at this point in time I do not believe that any procedure is planned . Objective - Vital Signs Vital signs: Vital Signs Temp 97.7 F 04/17/20 07:58 Pulse 69 04/17/20 08:02 Resp 18 04/17/20 08:02 BP 121/77 04/17/20 07:58 Pulse Ox 91 L 04/17/20 07:58 Intake & Output 04/16/20 04/17/20 04/17/20 18:59 06:59 18:59 Weight 101.151 kg Other: Voiding Method Toilet Toilet Toilet # Voids 1 1 - Exam Review of Systems Constitutional: Reports chronic headaches, Reports weight gain, Denies anorexia, Denies lethargy, Denies weakness Eyes: denies as per HPI, denies blurred vision, denies bulging eye Ears, nose, mouth and throat: Denies dysphagia, Denies neck lump, Denies sore throat Cardiovascular: Reports decreased exercise tolerance, Reports dyspnea on exertion, Reports shortness of breath, Denies chest pain, Denies lightheadedness, Denies rapid heart beat, Denies syncope Respiratory: Denies cough, Denies cough with sputum, Denies home oxygen, Denies sleep apnea, Denies snoring, Denies wheezing Gastrointestinal: Reports abdominal pain, Reports bloating, Reports early satiety, Reports nausea, Denies change in bowel habits, Denies coffee ground emesis, Denies diarrhea, Denies dyspepsia, Denies heartburn, Denies hematemesis, Denies indigestion, Denies loss of appetite, Denies melena, Denies vomiting Genitourinary: Denies dysuria, Denies nocturia Menstruation: Reports postmenopausal Musculoskeletal: Denies myalgias Musculoskeletal: absent: ankle pain, ankle stiffness, ankle swelling, elbow pain, elbow stiffness, elbow swelling, foot pain, foot stiffness, foot swelling, hand pain, hand stiffness, hand swelling, hip pain, hip stiffness, hip swelling, knee pain, knee stiffness, knee swelling, shoulder pain, shoulder stiffness, shoulder swelling, wrist pain, wrist stiffness, wrist swelling Integumentary: Denies pruritus, Denies rash Neurological: Denies numbness, Denies weakness Psychiatric: Denies anxiety, Denies depression Endocrine: Denies fatigue, Denies weight change Physical examination: HEENT: head is atraumatic normocephalic pupils were equal round reactive to light and accommodations, extra ocular muscle movement were intact. Neck: supple no JVP. Chest : decrease breath sounds at the bases with few ronchi, no expiratory wheezes, no chest wall tenderness or intercostal retractions. Heart: first heart sound is depressed, second heart sound is normal there is YASMEEN 2/6 located at the left sternal border. Abdomen: soft , moderate tenderness in the left upper quadrant, no rebound or guarding positive bowel sounds. Extremities: trace edema no calf tenderness, DP +1 bilaterally. Neurologic examination: patient is awake alert and oriented X3 CN II-XII are grossly intact, muscle power 4/5 in upper ad lower extremities bilaterally. - Labs CBC & Chem 7: 04/17/20 07:49 04/17/20 07:49 Labs: Abnormal Lab Results - Last 24 Hours (Table) 04/16/20 04/16/20 04/16/20 Range/Units 09:55 09:55 09:55 WBC 11.1 H (3.8-10.6) k/uL Sodium 136 L (137-145) mmol/L BUN 20 H (7-17) mg/dL Glucose 145 H (74-99) mg/dL POC Glucose (mg/dL) (75-99) mg/dL Plasma Lactic Acid Kj 3.2 H* (0.7-2.0) mmol/L Alkaline Phosphatase 139 H (38-126) U/L 04/16/20 04/17/20 Range/Units 19:59 06:09 WBC (3.8-10.6) k/uL Sodium (137-145) mmol/L BUN (7-17) mg/dL Glucose (74-99) mg/dL POC Glucose (mg/dL) 157 H 148 H (75-99) mg/dL Plasma Lactic Acid Kj (0.7-2.0) mmol/L Alkaline Phosphatase (38-126) U/L Assessment and Plan Assessment: Assessment and plan: 1. Left upper quadrant abdominal with negative [address] scan so far, may be related to scar tissues, we will continue with IVF and pain management and patient will be scheduled for EGD as outpatient, hopefully home in AM. Continue patient on Bentyl 10 mg orally 3 times every day. 2. CAD post PCI of the LCX. we will continue with Bystolic 5 mg orally daily and Repatha 140 mg SC q 2weeks. 3. Bilateral pulmonary emboli. we will continue with Eliquis 5 mg po bid for [address] scan of the chest last month did not show any evidence of PE. 4. Hypertension and hypertensive cardiovascular disease. we will continue with Bystolic 5 mg orally daily. 5. Hyperlipidemia. was intolerant to STATINS, we will continue with Repath 140 mg SC q 2weeks. 6. Diabetes mellitus type 2. we will continue with diet and exercise and weight loss, has been off Rx. 7. Moderate mitral regurgitation. echocardiogram was done recently. 8. Depression. we will continue with Lexapro 5 mg orally daily. 9. GERD. we will continue with Protonix 40 mg p daily. 10. DVT prophylaxis. we will continue with Eliquis 5 mg orally bid. 11. Medically stable to be discharged.
--- NOTE | 2020-04-17 11:32 | P.DS ---
Providers Date of admission: 04/16/20 11:26 Expected date of discharge: 04/17/20 Attending physician: Celso Do Consults: 04/16/20 15:07 Consult Physician Routine Consulting Provider: Amelia Erwin Consult Reason/Comments: medical management Do you want consulting provider notified?: Yes Primary care physician: Amelia Erwin Hospital Course: This is a 80-year-old female who is admitted to the hospital with complaints of chronic left-sided abdominal pain. Patient had a repeat CAT scan performed which showed no obvious abnormality to explain her pain. Patient states he fee ls better this morning. On exam her vital signs are stable. Abdomen soft. Labs are within normal. Air patiently discharged home today she'll undergo further outpatient workup of her abdominal pain. Patient Condition at Discharge: Good Plan - Discharge Summary Discharge Rx Participant: No New Discharge Prescriptions: New Dicyclomine [Bentyl] 10 mg PO TID #90 cap Continue HYDROcodone/APAP 10-325MG [[place] 10-325] 1 tab PO Q12H PRN PRN Reason: Pain Evolocumab [Repatha Syringe] 140 mg SQ Q14D Omeprazole 40 mg PO DAILY Nebivolol HCl [Bystolic] 5 mg PO HS Apixaban [Eliquis] 5 mg PO BID Escitalopram [Lexapro] 10 mg PO HS Discharge Medication List Evolocumab [Repatha Syringe] 140 mg SQ Q14D 07/07/19 [History] HYDROcodone/APAP 10-325MG [[place] 10-325] 1 tab PO Q12H PRN 07/07/19 [History] Nebivolol HCl [Bystolic] 5 mg PO HS 07/07/19 [History] Omeprazole 40 mg PO DAILY 07/07/19 [History] Apixaban [Eliquis] 5 mg PO BID 04/16/20 [History] Escitalopram [Lexapro] 10 mg PO HS 04/16/20 [History] Dicyclomine [Bentyl] 10 mg PO TID #90 cap 04/17/20 [Rx] Follow up Appointment(s)/Referral(s): Amelia Erwin MD [Primary Care Provider] - 1 Week Celso Do MD [STAFF PHYSICIAN] - 1 Week Discharge Disposition: HOME SELF-CARE
[2020-04-17 11:55] LABS: Glucose,Whole Blood 116 mg/dL (75-99)
== END 2020-04-17 15:05 | disposition home or self-care (01) ==
LOC: EC 09:29 → 1SOBS 11:26
PROVIDERS: ADMIT Surgery; ATTEND Surgery
DX: R10.12 Left upper quadrant pain (principal); E86.0 Dehydration; E87.2 Acidosis; E03.9 Hypothyroidism, unspecified; E11.9 Type 2 diabetes mellitus without complications; E78.5 Hyperlipidemia, unspecified; F32.9 Major depressive disorder, single episode, unspecified; F41.1 Generalized anxiety disorder; I11.9 Hypertensive heart disease without heart failure; I25.10 Atherosclerotic heart disease of native coronary artery without angina pectoris; I34.0 Nonrheumatic mitral (valve) insufficiency; K21.9 Gastro-esophageal reflux disease without esophagitis; Z79.01 Long term (current) use of anticoagulants; Z79.899 Other long term (current) drug therapy; Z80.0 Family history of malignant neoplasm of digestive organs; Z82.49 Family history of ischemic heart disease and other diseases of the circulatory system; Z85.828 Personal history of other malignant neoplasm of skin; Z86.711 Personal history of pulmonary embolism; Z87.19 Personal history of other diseases of the digestive system; Z87.891 Personal history of nicotine dependence; Z90.710 Acquired absence of both cervix and uterus; Z95.5 Presence of coronary angioplasty implant and graft; Z96.651 Presence of right artificial knee joint; Z98.1 Arthrodesis status; Z98.84 Bariatric surgery status
CPT/HCPCS: 96376 ×2; 96374; 99285; 36415; 80053 ×2; 82150; 83605; 83690; 85025 ×2; 85610; 85730; 81003; 74018; 74177; G0378 ×2; J1170 ×2; Q9967

== ENCOUNTER → 2020-04-26 | Outpatient (CLI) | payer MEDICARE ==
[2020-04-26 14:47] VITALS: BP 137/77; PULSE 85; RESP 18; TEMP 98.1; BMI 44.5
--- NOTE | 2020-04-26 14:49 | P.HPBAR ---
Bariatric H&P - History & Physicial H&P Date: 04/26/20 History & Physicial: Visit/CC: follow up Patient initial contact: Initial weight: 112.037 kg Initial weight in pounds: 247.00 Height: 5 ft Initial BMI: 48.2 Last weight: Current weight: 103.419 kg Current weight in pounds: 228.00 Current BMI: 44.5 [place] body weight (based on NIH guidelines): 45.359 kg Excess body weight loss: 12.9% The patient is a 80 year-old F who presents for Bariatric Assessment. Patient presents today for follow-up. She's had complaints of chronic epigastric and left upper quadrant pain. Her recent CAT scan is normal. Past Medical History Past Medical History: Coronary Artery Disease (CAD), Cancer, Chest Pain / Angina, GERD/Reflux, Hyperlipidemia, Hypertension, Osteoarthritis (OA), Pulmonary Embolus (PE), Thyroid Disorder Additional Past Medical History / Comment(s): SKIN CANCER, "AFTER 2ND KNEE SX KIDNEYS SHUT DOWN-SINCE RESOLVED", DJD, SVT, PALPITATIONS, glaucoma, recent "viral" infection per pt-just finished antibiotics, feels much better, bilateral pulmonary embolism History of Any Multi-Drug Resistant Organisms: None Reported Past Surgical History: Appendectomy, Bariatric Surgery, Cardiac Ablation, Cholecystectomy, Heart Catheterization With Stent, Hysterectomy, Joint Replacement Additional Past Surgical History / Comment(s): Right total knee arthroplasty in 2008 with revision in 2012, right heel cord repair, right knee meniscus repair, right knee adhesion repair, RIGHT EYE CATARACT, NIKKO ROTATOR CUFF REPAIR, NIKKO CARPAL TUNNEL, RIGHT KNEE ARTHROSCOPIC, COLONOSCOPY X3, lap band, spinal fusion, right ankle fracture repair lap band [id number] Past Anesthesia/Blood Transfusion Reactions: Previous Problems w/ Anesthesia Additional Past Anesthesia/Blood Transfusion Reaction / Comm: "AFTER 2ND KNEE SX-KIDNEYS SHUT DOWN" Date of Last Stent Placement:: 2014 Past Psychological History: Depression Additional Psychological History / Comment(s): . Smoking Status: Former smoker Past Alcohol Use History: Rare Additional Past Alcohol Use History / Comment(s): Smoker more than 1 pack per day starting at 17 years of age until she was 42 years of age. No illicit drug use, no alcohol abuse. Past Drug Use History: None Reported - Past Family History Brother(s) Additional Family Medical History / Comment(s): Patient had 1 brother that at age 64 from a myocardial infarction. Sister(s) Additional Family Medical History / Comment(s): Patient has 3 sisters and one has history of Guillain-barre syndrome. Son(s) Additional Family Medical History / Comment(s): Patient has one son with history of neurofibrmatosis type I and type II. Mother Family Medical History: Cancer Additional Family Medical History / Comment(s): Mother at age 45 from COLON CANCER Father Family Medical History: Congestive Heart Failure (CHF), Myocardial Infarction ([place]) Additional Family Medical History / Comment(s): Father at age 45 from myocardial infarction. Surgical - Exam Vital Signs Temp Pulse Resp BP 98.1 F 85 18 137/77 04/26/20 14:33 04/26/20 14:33 04/26/20 14:33 04/26/20 14:33 - General well developed, well nourished, no distress - Eyes PERRL - ENT normal pinna - Neck no masses - Respiratory normal expansion - Cardiovascular Rhythm: regular - Abdomen Mild epigastric pain Abdomen: soft Bariatric Assessment & Plan Plan: Patient will be scheduled for EGD colonoscopy. If this is normal she may require diagnostic laparoscopy Bariatric Checklist Checklist: Plan: Checklist: EGD: 1. Hiatal hernia: 2. H. Pylori: HgbA1c: Vitamin D: Smoking: Former smoker Primary care physician referral: Yaima Psychiatry clearance: Cardiology clearance: Sleep study: Diet journal: VTE risk score: VTE risk level: Rehab needs at discharge:
== END | disposition home or self-care (01) ==
LOC: BARWHC3 14:27
PROVIDERS: ATTEND Surgery
DX: Z48.815 Encounter for surgical aftercare following surgery on the digestive system (principal); Z98.84 Bariatric surgery status; Z90.49 Acquired absence of other specified parts of digestive tract; Z90.710 Acquired absence of both cervix and uterus
CPT/HCPCS: 99211

== ENCOUNTER → 2020-08-30 | Outpatient (CLI) | payer MEDICARE ==
--- NOTE | 2020-08-30 16:14 | CT ---
EXAMINATION TYPE: CT abdomen pelvis wo con DATE OF EXAM: 08/30/2020 COMPARISON: 04/16/2020 INDICATION: Diverticulitis DLP: 1106 mGycm, Automated exposure control for dose reduction was used. CONTRAST: 0 mL of Isovue 300. Study performed with Oral Contrast TECHNIQUE: Axial images were obtained from above the diaphragm to the pubic rami in the axial plane a t 5 mm thick sections. Reconstructed images are reviewed on the computer in the coronal plane. FINDINGS: Limited CT sections are obtained the lung bases. The lung bases are clear. Coronary artery calcific ations present. Vascular calcifications within the aorta. CT ABDOMEN: Liver: Normal Spleen: Normal Pancreas: Slightly atrophic with some fatty infiltration Adrenal glands: Right adrenal gland has a nodule measuring 1.8 cm. Gallbladder: Normal Kidneys: No masses are evident. No hydronephrosis is present. No cysts are present. Delayed images were obtained through the kidneys, which remain unremarkable. Aorta: Vascular calcification is within the aorta. Inferior vena cava: Normal. CT PELVIS: Loops of bowel within the abdomen and pelvis are normal. There are loops of bowel lacking oral co ntrast or incompletely distended limiting their evaluation. A few scattered diverticuli without acute diverticulitis are present. Appendix: Not identified. No suspicious dilated tubular structure or inflammatory changes are evident . Urinary bladder: Decompressed limiting evaluation Genitourinary structures: Uterus and ovaries are not identified. Osseous structures: No suspicious lytic or sclerotic lesions. Degenerative disc changes through the t horacic and lumbar spine. IMPRESSIONS: 1. Nodule on the right adrenal gland. 2. No suspicious changes for acute diverticulitis. A few scattered diverticula are present within the distal colon
== END | disposition home or self-care (01) ==
LOC: RADCTMAIN 12:49
PROVIDERS: ATTEND Internal Medicine
DX: K57.51 Diverticulosis of both small and large intestine without perforation or abscess with bleeding (principal)
CPT/HCPCS: 74176

== ENCOUNTER 2022-04-19 19:07 | Emergency (ER) | payer MEDICARE ==
--- NOTE | 2022-04-19 20:19 | XR ---
EXAMINATION TYPE: XR shoulder complete RT DATE OF EXAM: 04/19/2022 COMPARISON: NONE HISTORY: Shoulder pain TECHNIQUE: 3 views FINDINGS: There is moderate narrowing of the shoulder joint space. There is spurring of the glenoid a nd the humeral head. No fracture seen. AC joint is intact. IMPRESSION: Moderate osteoarthritis in the shoulder joint. No fracture.
--- NOTE | 2022-04-19 20:20 | XR ---
EXAMINATION TYPE: XR humerus RT DATE OF EXAM: 04/19/2022 COMPARISON: NONE HISTORY: Arm pain TECHNIQUE: 2 views FINDINGS: The humerus is intact. No fracture nor dislocation. Elbow joint is intact. There is moderat e osteoarthritis in the shoulder joint. IMPRESSION: No evidence of humerus fracture.
--- NOTE | 2022-04-19 21:10 | ED ---
General Adult HPI - General Chief complaint: Extremity Injury, Upper Stated complaint: fall Time Seen by Provider: 04/19/22 20:55 Source: patient, RN notes reviewed, old records reviewed Mode of arrival: ambulatory Limitations: no limitations - History of Present Illness Initial comments: Patient is an 82-year-old female who presents emergency Department following a fall. Patient is not on blood thinners. Inflates with a cane at baseline. States she was attempting to get into her chair, when she sat abnormally on the chair and fell onto her right side. She fell onto her right shoulder. She states she had right shoulder pain following the fall as well as radiation towards the right side of her neck. That it somewhat improved. She is not on thinners. Did not lose consciousness. Now has pain with movement of the right shoulder. Presents for further evaluation of this time to rule out injury to the right shoulder. Denies any other acute complaints at this time. Denies any other injuries. Fall occurred approximately 3 hours prior to my evaluation of her. - Related Data Home Medications Medication Instructions Recorded Confirmed Evolocumab [Repatha Syringe] 140 mg SQ Q14D 07/07/19 05/11/20 HYDROcodone/APAP 10-325MG [[place] 1 tab PO Q12H PRN 07/07/19 05/11/20 10-325] Nebivolol HCl [Bystolic] 5 mg PO HS 07/07/19 05/11/20 Omeprazole 40 mg PO DAILY 07/07/19 05/11/20 Apixaban [Eliquis] 5 mg PO BID 04/16/20 05/11/20 Escitalopram [Lexapro] 10 mg PO HS 04/16/20 05/11/20 Cannabidiol (Cbd) [Epidiolex] 0 mg PO HS PRN 05/11/20 05/11/20 Previous Rx's Medication Instructions Recorded methocarbamoL [Robaxin] 500 mg PO BID PRN 7 Days #14 tab 04/19/22 Allergies Allergy/AdvReac Type Severity Reaction Status Date / Time clindamycin Allergy Swelling, Verified 04/19/22 19:52 ITCHING,NAUSEA AND VOMITING ezetimibe [From Zetia] Allergy Rash/Hives Verified 04/19/22 19:52 rosuvastatin [From Crestor] Allergy Rash/Hives Verified 04/19/22 19:52 Sulfa (Sulfonamide Allergy Swelling Verified 04/19/22 19:52 Antibiotics) Tetracyclines Allergy Swelling Verified 04/19/22 19:52 metformin AdvReac Diarrhea Verified 04/19/22 19:52 Review of Systems ROS Statement: Those systems with pertinent positive or pertinent negative responses have been documented in the HPI. Review of Systems: CONST: Denies fever EYES: Denies blurry vision ENT: Denies nasal congestion C/V: Denies Chest pain RESP: Denies shortness of breath GI: Denies abdominal pain : Denies dysuria SKIN: Denies rash. MSK: Patient has shoulder pain. NEURO: Denies headache ROS Other: All systems not noted in ROS Statement are negative. Past Medical History Past Medical History: Coronary Artery Disease (CAD), Cancer, Chest Pain / Angina, GERD/Reflux, Hyperlipidemia, Hypertension, Osteoarthritis (OA), Pulmonary Embolus (PE), Thyroid Disorder Additional Past Medical History / Comment(s): SKIN CANCER, "AFTER 2ND KNEE SX KIDNEYS SHUT DOWN-SINCE RESOLVED", DJD, SVT, PALPITATIONS, glaucoma, recent "viral" infection per pt-just finished antibiotics, feels much better, bilateral pulmonary embolism History of Any Multi-Drug Resistant Organisms: None Reported Past Surgical History: Appendectomy, Bariatric Surgery, Cardiac Ablation, Cholecystectomy, Heart Catheterization With Stent, Hysterectomy, Joint Replacement Additional Past Surgical History / Comment(s): Right total knee arthroplasty in 2008 with revision in 2012, right heel cord repair, right knee meniscus repair, right knee adhesion repair, RIGHT EYE CATARACT, NIKKO ROTATOR CUFF REPAIR, NIKKO CARPAL TUNNEL, RIGHT KNEE ARTHROSCOPIC, COLONOSCOPY X3, lap band, spinal fusion, right ankle fracture repair lap band [id number] Past Anesthesia/Blood Transfusion Reactions: Previous Problems w/ Anesthesia Additional Past Anesthesia/Blood Transfusion Reaction / Comment(s): "AFTER 2ND KNEE SX-KIDNEYS SHUT DOWN" Date of Last Stent Placement:: 2014 Past Psychological History: Depression Smoking Status: Former smoker Past Alcohol Use History: None Reported Past Drug Use History: None Reported - Past Family History Brother(s) Family Medical History: Cancer Additional Family Medical History / Comment(s): Patient had 1 brother that at age 64 from a myocardial infarction. Sister(s) Additional Family Medical History / Comment(s): Patient has 3 sisters and one has history of Guillain-barre syndrome. Son(s) Additional Family Medical History / Comment(s): Patient has one son with history of neurofibrmatosis type I and type II. Mother Family Medical History: Cancer Additional Family Medical History / Comment(s): Mother at age 45 from COLON CANCER Father Family Medical History: Congestive Heart Failure (CHF), Myocardial Infarction ([place]) Additional Family Medical History / Comment(s): Father at age 45 from myocardial infarction. General Exam - General Exam Comments Initial Comments: General: [Appears in no acute distress.] HEAD: [Normal with no signs of head trauma.] EYES: EOMI ENT: Hearing grossly intact RESPIRATORY: No respiratory distress. C/V: Regular rate and rhythm. S1 and S2 auscultated. Peripheral pulses 2+ and intact throughout. ABD: Nondistended EXT: Reduced range of motion of the right shoulder secondary to pain. Primarily with any movement above 90. I can passively range her shoulder above 90. Tenderness to palpation over the superior deltoid as well as near AC joint and humeral head. Mild trapezius muscle tenderness to palpation. Neurovascularly intact. No midline cervical, thoracic, lumbar spine tenderness to palpation. SKIN: [No rashes or lesions observed on exposed skin.] NEURO: Alert and oriented 4. No focal sensory strength deficits. Limitations: no limitations Course Vital Signs 04/19/22 19:49 Temperature 98.2 F Pulse Rate 80 Respiratory 20 Rate Blood Pressure 159/78 O2 Sat by Pulse 96 Oximetry Medical Decision Making - Medical Decision Making Based on the patient's presentation and physical exam, I'm concerned for right shoulder injury secondary to the patient's fall. No other injuries at this time. X-rays were already obtained when I evaluated the patient [facility] room. Is interpreted by me, right shoulder and humeral x-rays revealed No evidence of right humeral or shoulder injury. Vital signs within acceptable limits. I did update the patient on these findings. I discussed that she should follow-up with her PCP in the next few days if it does not improve. She'll be given muscle relaxers for home. She declines any other analgesic medications at this time. She was in agreement this plan. Strict return precautions were discussed. Recommended icing, resting the right shoulder. Recommended ranging as soon as possible to avoid frozen shoulder. She was in agreement with this plan. Discussion likely has a shoulder sprain, but may require further evaluation and imaging if symptoms do not improve. I will provide the patient with a prescription for Robaxin. I instructed the patient to follow up with their PCP in the next 1-3 days. I explained that the patient should return to the emergency department if they experience any worsening symptoms. Strict return precautions were discussed with the patient. The patient expressed understanding of these instructions. I answered all questions that the patient had. The patient was discharged home in good condition with their prescriptions and follow up information. Disposition Clinical Impression: Sprain of shoulder, right Disposition: HOME SELF-CARE Condition: Good Instructions (If sedation given, give patient instructions): Shoulder Sprain (ED) Prescriptions: methocarbamoL [Robaxin] 500 mg PO BID PRN 7 Days #14 tab PRN Reason: Pain Is patient prescribed a controlled substance at d/c from ED?: No Referrals: Amelia Erwin MD [Primary Care Provider] - 1-2 days Time of Disposition: 21:08
[2022-04-19 21:21] VITALS: BP 148/70; PULSE 79; RESP 18; TEMP 98
== END 2022-04-19 21:21 | disposition home or self-care (01) ==
LOC: EC 19:07
DX: S43.401A Unspecified sprain of right shoulder joint, initial encounter (principal); I25.10 Atherosclerotic heart disease of native coronary artery without angina pectoris; K21.9 Gastro-esophageal reflux disease without esophagitis; E78.5 Hyperlipidemia, unspecified; I10 Essential (primary) hypertension; M19.90 Unspecified osteoarthritis, unspecified site; E07.9 Disorder of thyroid, unspecified; F32.A Depression, unspecified; Z87.891 Personal history of nicotine dependence; Z88.1 Allergy status to other antibiotic agents; Z88.2 Allergy status to sulfonamides; Z79.84 Long term (current) use of oral hypoglycemic drugs; Z79.899 Other long term (current) drug therapy; W07.XXXA Fall from chair, initial encounter
CPT/HCPCS: 99284

== ENCOUNTER → 2022-09-14 | Outpatient (CLI) | payer MEDICARE ==
--- NOTE | 2022-09-14 13:28 | CT ---
EXAMINATION TYPE: CT abdomen pelvis wo con DATE OF EXAM: 09/14/2022 COMPARISON: 08/30/2020 HISTORY: RT flank pain CT DLP: 990.50 mGycm Examination of the solid and hollow viscera is limited given the lack of contrast. FINDINGS: LUNG BASES: No evidence for nodule. No evidence for infiltrate. LIVER/GB: The gallbladder surgically absent. No space-occupying hepatic lesion. PANCREAS: No pancreatic mass identified. No inflammatory process seen. SPLEEN: No evidence for splenomegaly. No intrasplenic lesions seen. ADRENALS: Bilateral adrenal nodularity is stable. Correlate for adrenal adenomas. No evidence for thi ckening. KIDNEYS: Stable hypoattenuating nonspecific lesion left kidney likely reflects a cyst. No nephrolithi asis. No hydronephrosis. BOWEL: Appendix has a normal appearance. No evidence of bowel obstruction. No inflammatory process. Lymph nodes: No evidence for adenopathy greater than 1 cm. Abdominal aorta: Atheromatous changes seen. No evidence for aneurysm. Genital organs: No significant abnormality. Other: No significant abnormality. IMPRESSION: STABLE ABDOMEN AND PELVIS WITHOUT EVIDENCE FOR ACUTE INTRA-ABDOMINAL PROCESS.
== END | disposition home or self-care (01) ==
LOC: RADCTMAIN 12:36
PROVIDERS: ATTEND Internal Medicine
DX: R10.9 Unspecified abdominal pain (principal)
CPT/HCPCS: 74176

== ENCOUNTER → 2025-01-09 | Outpatient (CLI) | payer MEDICARE ==
--- NOTE | 2025-01-09 10:41 | CT ---
EXAMINATION TYPE: CT brain wo con DATE OF EXAM: 01/09/2025 COMPARISON: None CLINICAL INDICATION: Female, 84 years old with history of S09.90XA UNSPECIFIED INJURY OF HEAD, INITIA L ENCOU; [facility], fell one month ago/headaches CT DLP: 1012.7 mGycm Automated exposure control for dose reduction was used. FINDINGS: Mild generalized degenerative change. Hypoattenuation the white matter most typical of remote microva scular ischemia. Moderate intracranial atherosclerotic changes. Prominent cisterna magna. Orbits symmetric. Mastoid sinuses and paranasal sinuses clear. Calvarium intact. Hyperostosis of the calvarium. Prominent pannus with severe degenerative change of the atlantoaxial joint. Only partially included in the [id number]. Craniocervical junction maintained. IMPRESSION: 1. NO EVIDENCE OF ACUTE INTRACRANIAL HEMORRHAGE OR MASS EFFECT 2. DEGENERATIVE AND NONSPECIFIC WHITE MATTER CHANGES MOST TYPICAL OF REMOTE MICROVASCULAR ISCHEMIA. [facility], , 01/09/2025 10:39 AM
[2025-01-09 15:35] LABS: ALT 25 U/L (8-44); AST 28 U/L (13-35); Albumin 4.1 g/dL (3.8-4.9); Albumin/Globulin Ratio 1.95 Ratio (1.60-3.17); Alkaline Phosphatase 111 U/L (41-126); Anion Gap 12.30 mmol/L (4.00-12.00); BUN/Creat Ratio 18.30 Ratio (12.00-20.00); Blood Urea Nitrogen 18.3 mg/dL (9.0-27.0); Calcium 9.5 mg/dL (8.7-10.3); Carbon Dioxide 24.7 mmol/L (21.6-31.8); Chloride 101 mmol/L (96-109); Cholesterol 199.00 mg/dL (0.00-200.00); Globulin 2.1 g/dL (1.6-3.3); Glucose 99 mg/dL (70-110); HDL Cholesterol 65.00 mg/dL (40.00-60.00); LDL Cholesterol,Calculated 108.2 mg/dL (0.0-131.0); Potassium 4.3 mmol/L (3.5-5.5); Sodium 138 mmol/L (135-145); Total Protein 6.2 g/dL (6.2-8.2); Triglycerides 129.00 mg/dL (0.00-149.00); VLDL Calculation 25.80 mg/dL (5.00-40.00)
== END | disposition home or self-care (01) ==
LOC: RADCTMAIN 09:57
PROVIDERS: ATTEND Neurological Surgery
DX: S09.90XA Unspecified injury of head, initial encounter (principal); I67.82 Cerebral ischemia; W19.XXXA Unspecified fall, initial encounter
CPT/HCPCS: 70450; 80053; 80061